=== PATIENT | male | born 1940 | race Caucasian/White ===

== ENCOUNTER → 2016-08-04 | Outpatient (CLI) | payer MEDICARE ==
[~2016-08-04] MED LIST: ALIS150T PO; ALLP300T PO; AMLO10TA82 PO; AMOX-208 PO; AMOX500C2 PO; ASP81CT PO; CARV12.53 PO; CEFU500T5 PO; CHOL100011 PO; FENO160T PO; HCT25T PO; INDO50CA PO; LISI20TA PO; LORA10TA2 PO; LVT.025T PO; NF-ALI300T PO; NFNEB10T PO; NIA500ERT PO; NIAC1CAP PO; OMEG-12 PO; OMG1KC PO; PNT40TEC PO; PRAS10TA6 PO; RNT150T PO; ROSU5TAB PO; TYLENOL
--- NOTE | 2016-08-04 12:48 | Diagnostic Imaging Report ---
EXAMINATION: PA and lateral views of the chest. INDICATION: Cough. COMPARISON: 04/07/2010. FINDINGS: The heart size is mildly enlarged. There is interstitial pulmonary edema. No airspace opacity or alveolar edema. No pleural effusion. No pneumothorax. There is a pacemaker with 2 leads seen. 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 IMPRESSION: Cardiomegaly with interstitial pulmonary edema. Dictated by: Dictated on workstation # [id number]
== END ==
LOC: RAD 12:29
PROVIDERS: ATTEND Nurse Practitioner Family
DX: I51.7 Cardiomegaly (principal); J81.1 Chronic pulmonary edema
CPT/HCPCS: 71020

== ENCOUNTER → 2016-11-07 | Outpatient (CLI) | payer MEDICARE ==
[~2016-11-07] MED LIST changes: +meTOprolol 5 MG/5 ML (LOPRESSOR) VIAL ONE
--- NOTE | 2016-11-08 08:21 | ECHOCARDIOGRAPHY REPORT ---
PROCEDURE PHYSICIAN: JEOVANY ROBLERO DATE OF PROCEDURE: 11/07/2016 TWO DIMENSIONAL ECHOCARDIOGRAM REPORT PRIMARY PHYSICIAN: OTHER PHYSICIAN: REFERRING PHYSICIAN: Dr. Okeefe ORDERING PHYSICIAN: INDICATION FOR THE PROCEDURE: Coronary artery disease. MEASUREMENTS DERIVED VALUES LV DIAMETER (LAX) NORMALS NORMALS Diastolic 4 (3.6-5.2) Eject. Fract. 60% (60%+/-6%) Systolic (2.3-3.9) Diastolic Vol. % Shortening (0.22-0.42) Systolic Vol. Aortic Root IVS THICKNESS Diastolic 1.2 (0.6-1.1) LVPW THICKNESS Diastolic 1.2 (0.6-1.1) LA DIAMETER Systolic 5 (2.1-3.7) FINDINGS: 1. Technical quality is good. 2. The left ventricle is normal in size with mild to moderate left ventricular hypertrophy noted diffusely. Systolic function appeared to be normal. Estimated ejection fraction 60%. 3. The left atrium is dilated. No clot or thrombus were seen within the left atrium. 4. The right atrium and right ventricle are normal in size. No clot or thrombus were seen within the right side. 5. Mitral valve is normal in morphology with mild mitral regurgitation noted by color Doppler flow. No mitral valve prolapse. No mitral valve stenosis. 6. Aortic valve is trileaflet with normal opening and closing pattern. No significant aortic valve stenosis was noted. Mild aortic regurgitation noted by color Doppler flow. 7. Tricuspid valve is normal in morphology with mild tricuspid regurgitation noted by color Doppler flow. Doppler across tricuspid valve estimated pulmonary artery pressure of 31+ right atrial pressure. 8. Pulmonic valve is functioning normally. 9. No pericardial effusion. IN CONCLUSION: 1. Mild to moderate left ventricular hypertrophy noted diffusely with normal systolic function. Estimated ejection fraction 60%. 2. Left atrial dilatation. 3. Mild aortic regurgitation. Mild mitral and tricuspid regurgitation. 4. Pulmonary hypertension with estimated pulmonary artery pressure of 40 mmHg. Job ID: [id number] Dictated Date: 11/07/2016 18:26:13 Major Gifts Director Date: 11/08/2016 08:18:13 / juno
--- NOTE | 2016-11-08 08:27 | STRESS TEST ---
PROCEDURE PHYSICIAN: JEOVANY ROBLERO DATE OF PROCEDURE: 11/07/2016 EXERCISE STRESS ECHOCARDIOGRAM REPORT: REFERRING PHYSICIAN: Dr. Okeefe. INDICATION: Coronary artery disease. BASELINE HEART RATE: 90 BASELINE BLOOD PRESSURE: 140/87 BASELINE EKG: Sinus rhythm with no ischemic changes. IN SUMMARY: The patient started exercising with a baseline heart rate, blood pressure, EKG mentioned above. At minute 1 and 50 seconds, started having frequent PVCs. Then had transient episode of left bundle branch block, probably secondary to paced rhythm. He continued to exercise for a total of 6 minutes on standard Mark protocol, achieving maximum heart rate of 155, which is over 100% of maximum expected heart rate. With peak exercise level, EKG was showing nondiagnostic changes. He had frequent PVCs and ventricular couplets. At peak stress level, blood pressure was 194/116. No acute ischemic changes. During recovery, he continued to have frequent PVCs and ventricular couplets. Then he had transient episode of ventricular paced rhythm with left bundle branch block. The patient was not having any chest pain. The resting and stress images were reviewed and compared in the short axis, horizontal long axis, and vertical long axis views. Review of the images showed normal left ventricular size with mild hypokinesia at the anteroapical segment and anterior lateral wall, probably due to underlying paced rhythm at peak stress level that was transient. Frequent PVCs also affected the quality of the images. No significant ischemic changes. IN CONCLUSION: 1. Good exercise tolerance a total of 6 minutes on standard Mark protocol. Total 7 METs, achieving over 100% of maximum expected heart rate. 2. Exercise-induced frequent PVCs, ventricular couplets and ventricular trigeminy. 3. Transient episode of left bundle branch block due to intermittent pacing rhythm. 4. Normal echocardiographic images at rest, mild hypokinesia at the apex at peak stress level, probably due to underlying paced rhythm and the frequent PVCs. 5. Overall, this is a nondiagnostic test. The patient was asymptomatic. He will be treated medically and monitor. Job ID: [id number] Dictated Date: 11/07/2016 18:32:15 Heating And Ventilating Drafter Date: 11/08/2016 08:23:15 / juno
== END ==
LOC: CARD 08:18
PROVIDERS: ATTEND Physician Assistant
DX: I25.10 Atherosclerotic heart disease of native coronary artery without angina pectoris (principal); I65.23 Occlusion and stenosis of bilateral carotid arteries; I10 Essential (primary) hypertension; E78.2 Mixed hyperlipidemia
CPT/HCPCS: 93306

== ENCOUNTER 2017-01-11 20:45 | Outpatient (CLI) | payer MEDICARE ==
[~2017-01-11 20:45] MED LIST changes: -meTOprolol 5 MG/5 ML (LOPRESSOR) VIAL ONE
== END 2017-01-12 05:44 | disposition home or self-care (01) ==
LOC: SLEEP 20:45
PROVIDERS: ATTEND Internal Medicine Cardiovascular Disease
DX: G47.33 Obstructive sleep apnea (adult) (pediatric) (principal); I10 Essential (primary) hypertension
CPT/HCPCS: 95810

== ENCOUNTER 2017-01-27 12:16 | Outpatient (RCR) | payer MEDICARE | END 2017-04-27 | disposition home or self-care (01) | LOC: CARD 12:16 | PROVIDERS: ATTEND Internal Medicine Cardiovascular Disease | DX: I47.2 Ventricular tachycardia (principal) | CPT/HCPCS: 93225; 93226 ==

== ENCOUNTER 2017-02-17 21:05 | Outpatient (CLI) | payer MEDICARE | END 2017-02-18 05:49 | disposition home or self-care (01) | LOC: SLEEP 21:05 | PROVIDERS: ATTEND Nurse Practitioner Family | DX: G47.33 Obstructive sleep apnea (adult) (pediatric) (principal) | CPT/HCPCS: 95811 ==

== ENCOUNTER 2017-06-24 07:59 | Emergency (ER) | payer MEDICARE ==
[~2017-06-24] VITALS: Ht 167.6 cm; Wt 90.7 kg
--- OUTSIDE RECORDS SUMMARY | 2017-06-24 08:04 | XMS REPORT | Continuity of Care Document ---
Author Author [facility] Organization [facility] Address Unknown Phone Unavailable Allergies Active Description Code Type Severity Reaction Onset Reported/Identified Relationship to Patient Clinical Status Yes No Known Drug Allergies [id number] Drug Allergy Unknown N/ A 12/13/2007 Medications Problems Date Dx Coded Attending Type Code Diagnosis Diagnosed By 01/11/2010 Ot 244.9 01/11/2010 Ot 272.4 01/11/2010 Ot 274.9 01/11/2010 Ot 401.9 01/11/2010 Ot 414.01 01/11/2010 Ot 414.02 01/11/2010 Ot 427.89 01/11/2010 Ot 530.81 01/11/2010 Ot 553.1 01/11/2010 Ot 790.5 04/08/2010 Ot 272.4 04/08/2010 Ot 401.9 04/08/2010 Ot 414.00 04/08/2010 Ot 427.81 04/08/2010 Ot 427.89 04/08/2010 Ot V45.81 04/08/2010 Ot V45.82 04/08/2010 Ot V58.66 04/08/2010 Ot V58.69 04/29/2010 Ot 427.89 10/01/2010 Ot 706.2 02/08/2011 Ot 272.4 02/08/2011 Ot 396.3 02/08/2011 Ot 397.0 02/08/2011 Ot 401.9 02/08/2011 Ot 414.01 02/08/2011 Ot 414.02 02/08/2011 Ot 414.2 02/08/2011 Ot 427.81 02/08/2011 Ot 427.89 02/08/2011 Ot 794.30 02/08/2011 Ot V45.01 02/08/2011 Ot V45.81 02/08/2011 Ot V45.82 02/08/2011 Ot V58.66 02/08/2011 Ot V58.69 12/25/2014 Ot 429.3 12/25/2014 Ot 780.60 12/25/2014 Ot 786.2 12/25/2014 Ot V45.81 12/25/2014 Ot 396.3 12/25/2014 Ot 397.0 12/25/2014 Ot 401.9 12/25/2014 Ot 427.89 12/25/2014 Ot 401.9 12/25/2014 Ot 414.01 12/25/2014 Ot 427.89 12/25/2014 Ot 791.9 12/25/2014 Ot V72.63 12/25/2014 Ot V72.81 12/25/2014 Ot 427.89 12/25/2014 Ot 272.4 12/25/2014 Ot 401.0 12/25/2014 Ot 414.01 12/25/2014 Ot V81.5 12/25/2014 Ot 706.2 12/25/2014 Ot 396.8 12/25/2014 Ot 397.0 12/25/2014 Ot 401.9 12/25/2014 Ot 414.00 12/25/2014 Ot 401.9 12/25/2014 Ot 414.00 12/25/2014 Ot 272.4 12/25/2014 Ot 401.9 12/25/2014 Ot 413.9 12/25/2014 Ot 414.00 12/25/2014 Ot 428.0 12/25/2014 Ot 794.39 12/25/2014 Ot V45.81 12/25/2014 Ot V72.63 12/25/2014 Ot V72.81 12/25/2014 Ot 396.3 12/25/2014 Ot 397.0 12/25/2014 Ot 414.00 12/25/2014 Ot 416.8 12/25/2014 Ot 782.3 12/25/2014 Ot 786.09 12/25/2014 OSBALDO FINCH, JEOVANY Valle Ot 272.4 12/25/2014 OSBALDO FINCH, JEOVANY Valle Ot 396.3 12/25/2014 OSBALDO FINCH, JEOVANY Valle Ot 397.0 12/25/2014 OSBALDO FINCH, JEOVANY Valle Ot 401.9 12/25/2014 OSBALDO FINCH, JEOVANY Valle Ot 414.00 12/25/2014 OSBALDO FINCH, JEOVANY Valle Ot 416.8 02/20/2015 OSBALDO FINCH, JEOVANY Valle Ot 272.4 02/20/2015 OSBALDO FINCH, JEOVANY Valle Ot 401.9 02/20/2015 OSBALDO FINCH, JEOVANY Valle Ot 414.00 02/20/2015 OSBALDO FINCH, JEOVANY Valle Ot 428.0 02/20/2015 OSBLADO FINCH, JEOVANY Valle Ot 433.10 02/26/2015 OSBALDO FINCH, JEOVANY Valle Ot 272.4 02/26/2015 OSBALDO FINCH, JEOVANY Valle Ot 401.9 02/26/2015 OSBALDO FINCH, JEOVANY Valle Ot 414.00 02/26/2015 OSBALDO FINCH, JEOVANY Valle Ot 428.0 02/26/2015 OSBALDO FINCH, JEOVANY Valle Ot 433.10 08/05/2016 LOBITO SANDOVAL EMPLOYEE COMMUNICATIONS SPECIALIST Ot I51.7 CARDIOMEGALY 08/05/2016 LOBITO SANDOVAL EMPLOYEE COMMUNICATIONS SPECIALIST Ot J81.1 CHRONIC PULMONARY EDEMA 08/26/2016 LOBITO SANDOVAL EMPLOYEE COMMUNICATIONS SPECIALIST Ot I51.7 CARDIOMEGALY 08/26/2016 LOBITO SANDOVAL EMPLOYEE COMMUNICATIONS SPECIALIST Ot J81.1 CHRONIC PULMONARY EDEMA 09/01/2016 LOBITO SANDOVAL EMPLOYEE COMMUNICATIONS SPECIALIST Ot I51.7 CARDIOMEGALY 09/01/2016 LOBITO SANDOVAL EMPLOYEE COMMUNICATIONS SPECIALIST Ot J81.1 CHRONIC PULMONARY EDEMA 11/07/2016 WALT CARDENAS Ot I25.10 ATHSCL HEART DISEASE OF [place] CORONARY 11/07/2016 WALT CARDENAS Ot I25.10 ATHSCL HEART DISEASE OF [place] CORONARY 11/07/2016 WALT CARDENAS Ot E78.2 MIXED HYPERLIPIDEMIA 11/07/2016 WALT CARDENAS Ot I10 ESSENTIAL (PRIMARY) HYPERTENSION 11/07/2016 WALT CARDENAS Ot I25.10 ATHSCL HEART DISEASE OF [place] CORONARY 11/07/2016 WALT CARDENAS Ot I65.23 OCCLUSION AND STENOSIS OF BILATERAL GR[place] 11/09/2016 WALT CARDENAS Ot E78.2 MIXED HYPERLIPIDEMIA 11/09/2016 WALT CARDENAS Ot I10 ESSENTIAL (PRIMARY) HYPERTENSION 11/09/2016 WALT CARDENAS Ot I25.10 ATHSCL HEART DISEASE OF [place] CORONARY 11/09/2016 WALT CARDENAS Ot I65.23 OCCLUSION AND STENOSIS OF BILATERAL GRIMALDO 11/13/2016 JACKELIN-WILVER PA, WALT K Ot E78.2 MIXED HYPERLIPIDEMIA 11/13/2016 JACKELIN-WILVER PA, WALT K Ot I10 ESSENTIAL (PRIMARY) HYPERTENSION 11/13/2016 GÉNESIS PA, WALT K Ot I25.10 ATHSCL HEART DISEASE OF [place] CORONARY 11/13/2016 JACKELIN-WILVER PA, WALT K Ot I65.23 OCCLUSION AND STENOSIS OF BILATERAL GRIMALDO 12/19/2016 JACKELIN-WILVER PA, WALT K Ot E78.2 MIXED HYPERLIPIDEMIA 12/19/2016 JACKELIN-WILVER PA, WALT K Ot I10 ESSENTIAL (PRIMARY) HYPERTENSION 12/19/2016 JACKELIN-WILVER PA, WALT K Ot I25.10 ATHSCL HEART DISEASE OF [place] CORONARY 12/19/2016 JACKELIN-WILVER PA, WALT K Ot I65.23 OCCLUSION AND STENOSIS OF BILATERAL GR[place]AL[place] 12/27/2016 JACEKLIN-WILVER PA, WALT K Ot E78.2 MIXED HYPERLIPIDEMIA 12/27/2016 GÉNESIS PA, WALT K Ot I10 ESSENTIAL (PRIMARY) HYPERTENSION 12/27/2016 GÉNESIS PA, WALT K Ot I25.10 ATHSCL HEART DISEASE OF [place] CORONARY 12/27/2016 JACKELIN-WILVER PA, WALT K Ot I65.23 OCCLUSION AND STENOSIS OF BILATERAL GRIMALDO 12/29/2016 JACKELIN-WILVER PA, WALT K Ot E78.2 MIXED HYPERLIPIDEMIA 12/29/2016 JACKELIN-WILVER PA, WALT K Ot I10 ESSENTIAL (PRIMARY) HYPERTENSION 12/29/2016 JACKELIN-WILVER PA, WALT K Ot I25.10 ATHSCL HEART DISEASE OF [place] CORONARY 12/29/2016 JACKELIN-WILVER PA, WALT K Ot I65.23 OCCLUSION AND STENOSIS OF BILATERAL GR[place] 01/12/2017 OSBALDO FINCH, JEOVANY Valle Ot G47.33 OBSTRUCTIVE SLEEP APNEA (ADULT) (PEDIATR 01/12/2017 OSBALDO FINCH, JEOVANY Valle Ot I10 ESSENTIAL (PRIMARY) HYPERTENSION 02/01/2017 OSBALDO FINCH, JEOVANY Valle Ot 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 02/01/2017 OSBALDO FINCH, JEOVANY Valle Ot 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 02/01/2017 JEOVANY ROBLERO MD Ot 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 02/01/2017 JEOVANY ROBLERO MD Ot 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 02/01/2017 JEOVANY ROBLERO MD Ot 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 02/01/2017 JEOVANY ROBLERO MD Ot 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 02/17/2017 DAISY RODAS Ot G47.33 OBSTRUCTIVE SLEEP APNEA (ADULT) ( PEDIATR 02/18/2017 DAISY RODAS Ot G47.33 OBSTRUCTIVE SLEEP APNEA (ADULT) ( PEDIATR 02/20/2017 WALT CARDENAS Ot E78.2 MIXED HYPERLIPIDEMIA 02/20/2017 WALT CARDENAS Ot I10 ESSENTIAL (PRIMARY) HYPERTENSION 02/20/2017 WALT CARDENAS Ot I25.10 ATHSCL HEART DISEASE OF [place] CORONARY 02/20/2017 WALT CARDENAS Ot I65.23 OCCLUSION AND STENOSIS OF BILATERAL GR[place] 02/20/2017 JEOVANY ROBLERO MD Ot 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 02/24/2017 JEOVANY ROBLERO MD Ot 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 04/27/2017 JEOVANY ROBLERO MD, Ot 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 Procedures Results Encounters ACCT No. Visit Date/Time Discharge Status Pt. Type Provider Facility Loc./Unit Complaint [id number] 04/28/2017 13:15:00 2016 23:59:59 CLS Preadmit JEOVANY ROBLERO MD [facility] CARD DAMION COMPLEX TACHYCARDIA I [id number] 01/27/2017 12:16:00 2016 00:01:00 DIS Outpatient JEOVANY ROBLERO MD [facility] CARD DAMION COMPLEX TACHYCARDIA I [id number] 02/17/2017 21:05:00 2016 05:49:00 DIS Outpatient DAISY RODAS [facility] SLEEP PAT G47.33 [id number] 01/11/2017 20:45:00 2016 05:44:00 DIS Outpatient JEOVANY ROBLERO MD [facility] SLEEP OBSTRUCTIVE SLEEP APNEA [id number] 11/07/2016 08:18:00 2016 23:59:59 CLS Outpatient WALT CARDENAS [facility] CARD CAD,HTN,HLP,CAROTID STENOSIS [id number] 08/04/2016 12:29:00 2016 23:59:59 CLS Outpatient LOBITO SANDOVAL KEN [facility] RAD COUGH [id number] 01/19/2015 08:40:00 2014 23:59:59 CLS Outpatient JEOVANY ROBLERO MD [facility] CARD [id number] 12/11/2013 07:33:00 2013 23:59:59 CLS Outpatient JEOVANY ROBLERO MD [facility] CARD [id number] 07/15/2011 12:39:00 Document Registration [id number] 02/08/2011 05:41:00 Document Registration [id number] 02/07/2011 09:49:00 Document Registration [id number] 01/24/2011 06:42:00 Document Registration [id number] 01/19/2011 12:25:00 Document Registration [id number] 10/02/2010 00:00:00 Document Registration [id number] 07/04/2010 09:14:00 Document Registration [id number] 05/31/2010 08:07:00 Document Registration [id number] 04/30/2010 09:00:00 Document Registration [id number] 04/07/2010 05:39:00 Document Registration [id number] 04/06/2010 07:54:00 Document Registration [id number] 03/30/2010 11:08:00 Document Registration [id number] 02/04/2010 09:57:00 Document Registration [id number] 01/29/2010 08:56:00 Document Registration [id number] 01/07/2010 01:52:00 Document Registration
--- NOTE | 2017-06-24 08:21 | ED Cough/URI ---
General Chief Complaint: Cough/Cold/Flu Symptoms Stated Complaint: POSS SINUS INFECTION, WATERING EYES, COUGH Nursing Triage Note: PT CO OF COUGH WATERY EYES, EYES MATTERED SHUT, RUNNY NOSE LOW GRADE FEVER COUPLE DAYS AGO Source: patient, spouse Exam Limitations: no limitations History of Present Illness Time seen by provider: 08:07 Initial Comments Patient presents to ER by private conveyance with his and a chief complaint that for 4 days now he's had a cough 2 days ago he had some chills and had a temperature of 100 Fahrenheit. His cough has been productive of phlegm. He is also had watering of his eyes and today he woke up with a lot of mattering in both eyes that he had to wash his face where he did feel his eyelids open. He does not smoke or use any tobacco products. No drinking or recreational drug use. He is not on any immunocompromising medications. He's had a sore throat as well as nasal congestion. His use Advil cough and cold medicine [id number] with modest relief. He has not been on antibiotics the last 4 weeks. He has no shortness of breath or chest pain. Patient received his flu shot this season. Allergies and Home Medications Allergies Coded Allergies: No Known Drug Allergies (Verified , 12/13/07) Home Medications Aliskiren Hemifumarate 150 Mg Tablet, 150 MG PO DAILY, (Reported) Allopurinol 300 Mg Tab, 300 MG PO HS, (Reported) Amlodipine Besylate 10 Mg Tablet, 10 MG PO DAILY, (Reported) Aspirin 81 Mg Chew, 81 MG PO DAILY, (Reported) Benzonatate 100 Mg Capsule, 100 MG PO Q6H PRN for COUGH, #30 Ref 0 Prescribed by: ABE VAUGHN on 06/24/17828 Cholecalciferol 1,000 Unit Capsule, 1,000 UNIT PO DAILY, (Reported) Erythromycin Base 1 Gm Oint...g., 0 OP QID for 5 Days, #1 Ref 0 1/2 inch Prescribed by: ABE VAUGHN on 06/24/17828 Guaifenesin/Codeine Phosphate 120 Ml Liquid, 5 ML PO Q6H PRN for COUGH, #120 Ref 0 Prescribed by: ABE VAUGHN on 06/24/17828 Hydrochlorothiazide 25 Mg Tab, 25 MG PO DAILY, (Reported) Indomethacin 50 Mg Capsule, 150 MG PO daily prn PRN, (Reported) Levothyroxine Sodium 25 Mcg Tablet, 50 MCG PO DAILY, (Reported) Lisinopril 20 Mg Tablet, 20 MG PO HS, (Reported) Loratadine 10 Mg Tablet, 10 MG PO DAILY PRN, (Reported) Nebivolol Hcl 10 Mg Tablet, 10 MG PO HS, (Reported) Niacin/Inositol Niacinate 1 Each Capsule, 500 MG PO BID, (Reported) [place]-3/Dha/Epa/Fish Oil 1 Each Capsule.dr, 1,000 MG PO BID, (Reported) Pantoprazole Sodium 40 Mg Tablet.dr, 40 MG PO daily prn, #30 (Reported) Prasugrel Hydrochloride 10 Mg Tablet, 10 MG PO DAILY, (Reported) Ranitidine Hcl 150 Mg Tablet, 150 MG PO DAILY, #30 (Reported) Rosuvastatin Calcium 5 Mg Tablet, 5 MG PO HS, (Reported) Constitutional: chills, No diaphoresis, No fever, malaise EENTM: tearing (mattering bilaterally), nose congestion, No hearing loss, No ear pain, No vision loss, No nose pain Respiratory: cough, phlegm, No short of breath Cardiovascular: No chest pain, No palpitations Gastrointestinal: No abdominal pain, No constipation, No diarrhea, No nausea Genitourinary: No discharge, No dysuria Musculoskeletal: No joint pain, No joint swelling Skin: No pruritus, No rash Psychiatric/Neurological: Headache, Denies Numbness, Denies Paresthesia Past Mekpits-Vejczj-Ndukqq Hx Patient Social History Alcohol Use: Denies Use Recreational Drug Use: No Smoking Status: Never a Smoker Recent Foreign Travel: No Contact w/Someone Who Travel: No Recent Infectious Disease Expo: No Recent Hopitalizations: Yes (SEVERAL YRS AGO FOR ALLERGIC REACTION TO MED) Physical Abuse: No Sexual Abuse: No Surgeries History of Surgeries: Yes (LEFT HIP REPLACEMENT) Cardiovascular History of Cardiac Disorders: Yes Neurological History of Neurological Disord: No Gastrointestinal History of Gastrointestinal Di: Yes (HAS HAD BLEEDING ULCERS) Musculoskeletal History of Musculoskeletal Dis: Yes Endocrine History of Endocrine Disorders: No Psychosocial History of Psychiatric Problem: No Suicide Risk Score: 0 Blood Transfusions History of Blood Disorders: No Physical Exam Vital Signs Vital Sign - Last 12Hours 06/24/17 08:00 Temp 98.2 Pulse 89 Resp 18 B/P (MAP) 187/107 Pulse Ox 95 Capillary Refill : Less Than 3 Seconds General Appearance: WD/WN, mild distress Eyes: Bilateral Eye PERRL, Bilateral Eye EOMI, Bilateral Eye Other (bilateral conjunctival injection and tearing with scant amount of mattering at the inner canthus.) HEENT: PERRL/EOMI, TM abnormal (R) (dull with mucoid effusion), TM abnormal (L ) (dull with mucoid effusion), pharyngeal erythema, other (oral mucous membranes are modestly dry) Neck: non-tender, supple, normal inspection Respiratory: chest non-tender, lungs clear, normal breath sounds, decreased breath sounds Cardiovascular: normal peripheral pulses, regular rate, rhythm Gastrointestinal: normal bowel sounds, non tender, soft Neurologic/Psychiatric: alert, oriented x 3 Skin: normal color, warm/dry Progress/Results/Core Measures Suspected Sepsis Recent Fever Within 48 Hours: No Infection Criteria Present: None New/Unexplained Altered Menta: No Sepsis Screen: No Definite Risk Sepsis Diagnosis: SIRS Temperature:98.2 Pulse: 89 Respiratory Rate: 18 Laboratory Tests 06/24/17 08:20: White Blood Count 10.4 Blood Pressure 187 /107 Mean: 133 Laboratory Tests 06/24/17 08:20: Creatinine 0.79, Platelet Count 128L, Total Bilirubin 1.0 Results/Orders Lab Results Laboratory Tests Test 06/24/17 08:20 Range/Units White Blood Count 10.4 4.3-11.0 10^3/uL Red Blood Count 5.04 4.35-5.85 10^6/uL Hemoglobin 15.0 13.3-17.7 G/DL Hematocrit 44 40-54 % Mean Corpuscular Volume 87 80-99 FL Mean Corpuscular Hemoglobin 30 25-34 PG Mean Corpuscular Hemoglobin Concent 34 32-36 G/DL Red Cell Distribution Width 13.9 10.0-14.5 % Platelet Count 128 L 130-400 10^3/uL Mean Platelet Volume 9.9 7.4-10.4 FL Neutrophils (%) (Auto) 67 42-75 % Lymphocytes (%) (Auto) 20 12-44 % Monocytes (%) (Auto) 11 0-12 % Eosinophils (%) (Auto) 1 0-10 % Basophils (%) (Auto) 0 0-10 % Neutrophils # (Auto) 6.9 1.8-7.8 X 10^3 Lymphocytes # (Auto) 2.1 1.0-4.0 X 10^3 Monocytes # (Auto) 1.1 H 0.0-1.0 X 10^3 Eosinophils # (Auto) 0.1 0.0-0.3 10^3/uL Basophils # (Auto) 0.0 0.0-0.1 10^3/uL Sodium Level 139 135-145 MMOL/L Potassium Level 3.8 3.6-5.0 MMOL/L Chloride Level 106 98-107 MMOL/L Carbon Dioxide Level 21 21-32 MMOL/L Anion Gap 12 5-14 MMOL/L Blood Urea Nitrogen 19 H 7-18 MG/DL Creatinine 0.79 0.60-1.30 MG/DL Estimat Glomerular Filtration Rate > 60 BUN/Creatinine Ratio 24 Glucose Level 122 H 70-105 MG/DL Calcium Level 9.4 8.5-10.1 MG/DL Total Bilirubin 1.0 0.1-1.0 MG/DL Aspartate Amino Transf (AST/SGOT) 17 5-34 U/L Alanine Aminotransferase (ALT/SGPT) 13 0-55 U/L Alkaline Phosphatase 130 40-136 U/L Total Protein 7.5 6.4-8.2 GM/DL Albumin 4.0 3.2-4.5 GM/DL Group A Streptococcus Screen NEGATIVE NEGATIVE My Orders Orders - ABE VAUGHN Cbc With Automated Diff (06/24/17 08:13) Comprehensive Metabolic Panel (06/24/17 08:13) Rapid Strep A Screen (06/24/17 08:13) Chest Pa/Lat (2 View) (06/24/17 08:13) Vital Signs/I&O Vital Sign - Last 12Hours 06/24/17 08:00 Temp 98.2 Pulse 89 Resp 18 B/P (MAP) 187/107 Pulse Ox 95 Capillary Refill : Less Than 3 Seconds Blood Pressure Mean: 133 Progress Note : Time: 08:19 Progress Note Most consistent with viral URI symptoms possible viral versus bacterial conjunctivitis. We will prescribe ophthalmic antibiotics and get a CBC, CMP and chest x-ray to workup his productive cough. Bronchitis versus pneumonia. Probably not influenza as there is no fever and the majority of his symptoms appear more to be upper respiratory in nature. Diagnostic Imaging Diagonstic Imaging: Xray Plain Films/CT/US/NM/MRI: chest Comments Sternotomy wires and pacemaker noted. There are some minor atelectasis in the fissure between the right middle and right lower lobe. Bronchial congestion. [facility] [employer] [place], [place] NAME: IRMA GONCALVES [facility] REC#: [id number] PT STATUS: REG ER : 1940 PHYSICIAN: ABE VAUGHN MD ADMIT DATE: 06/24/17/ER Draft Date of Exam:06/24/17 CHEST PA/LAT (2 VIEW) INDICATION: Cough and congestion. COMPARISON: 08/04/2016. FINDINGS: Two views of the chest are obtained. Heart size is enlarged but unchanged. There is mild central vascular congestion, similar to the prior study. Pacer device and postoperative change of the mediastinum are stable. Interstitial changes seen on the prior study have improved. No focal pneumonia is suspected. There are mild degenerative changes in the spine. IMPRESSION: Persistent cardiomegaly with mild central venous congestion. Interstitial changes, however, have improved. No new abnormality is seen. Dictated on workstation # [id number] Dict: 06/24/17 0831 Trans: 06/24/17 0859 [facility] [id number] Interpreted by: THERESA CAR DO Electronically signed by: Reviewed: Reviewed by Me Departure Impression Impression: Primary Impression: Conjunctivitis Qualified Codes: H10.33 - Unspecified acute conjunctivitis, bilateral Additional Impressions: Otitis media, serous Qualified Codes: H65.03 - Acute serous otitis media, bilateral URI (upper respiratory infection) Qualified Codes: J06.9 - Acute upper respiratory infection, unspecified; B97.89 - Other viral agents as the cause of diseases classified elsewhere Disposition: 01 HOME, SELF-CARE Condition: Stable Departure-Patient Inst. Decision time for Depature: 09:07 Referrals: BILLY BRENNER MD (PCP/Family) Primary Care Physician Patient Instructions: Conjunctivitis (Pinkeye) (DC), Viral Upper Respiratory Infection, Adult (DC) Add. Discharge Instructions: Use good hand hygiene with soap and water. Apply a warm compress over each eye as needed every 2-4 hours. You may use saline eyedrops in addition to the antibacterial drops but do not use them at the same time. Obtain a bottle of Flonase, fluticasone or Nasacort and apply 1 spray to each nostril daily for the next 2 weeks to help relieve the pressure in your middle ears. Vapor rubs, humidifiers and reduce in the heat in the house will help with your breathing and cough. He had a sore throat you may gargle salt water for 90 seconds every 4 -5 hours or as needed. Tylenol 1000 mg every 8 hours is reasonable for body aches, misery or chills. All discharge instructions reviewed with patient and/or family. Voiced understanding. Scripts Benzonatate (Tessalon Perle) 100 Mg Capsule 100 MG PO Q6H Y for COUGH, #30 CAP 0 Refills Prov: ABE VAUGHN 06/24/17 Guaifenesin/Codeine Phosphate (Codeine-Guaifen 10-100 mg/5 ml) 120 Ml Liquid 5 ML PO Q6H Y for COUGH, #120 ML 0 Refills Prov: ABE VAUGHN 06/24/17 Erythromycin Base (Erythromycin Opthalmic Ointment) 1 Gm Oint...g. 0 OP QID for 5 Days, #1 TUBE 0 Refills 1/2 inch Prov: ABE VAUGHN 06/24/17 Copy Copies To 1: BILLY BRENNER MD, TITUS J Jun 24, 2017 08:21
[2017-06-24 08:26] LABS: BASOPHILS % (AUTO) 0 % (0-10); EOSINOPHILS # (AUTO) 0.1 10^3/uL (0.0-0.3); EOSINOPHILS % (AUTO) 1 % (0-10); LYMPHOCYTES # (AUTO) 2.1 X 10^3 (1.0-4.0); LYMPHOCYTES % (AUTO) 20 % (12-44); MEAN CORPUSCULAR HEMOGLOBIN 30 PG (25-34); MEAN CORPUSCULAR HGB CONC 34 G/DL (32-36); MEAN CORPUSCULAR VOLUME 87 FL (80-99); MEAN PLATELET VOLUME 9.9 FL (7.4-10.4); MONOCYTES # (AUTO) 1.1 X 10^3 (0.0-1.0); MONOCYTES % (AUTO) 11 % (0-12); NEUTROPHILS # (AUTO) 6.9 X 10^3 (1.8-7.8); NEUTROPHILS % (AUTO) 67 % (42-75); PLATELET COUNT 128 10^3/uL (130-400); RED BLOOD COUNT 5.04 10^6/uL (4.35-5.85); RED CELL DISTRIBUTION WIDTH 13.9 % (10.0-14.5); WHITE BLOOD COUNT 10.4 10^3/uL (4.3-11.0)
[2017-06-24] MEDS ORDERED: GUAI120L56 PO (08:29)
[2017-06-24] MEDS ORDERED: ERYT1OIN6 OP (08:29)
[2017-06-24] MEDS ORDERED: BENZ-13 PO (08:29)
--- NOTE | 2017-06-24 09:00 | Diagnostic Imaging Report ---
INDICATION: Cough and congestion. COMPARISON: 08/04/2016. FINDINGS: Two views of the chest are obtained. Heart size is enlarged but unchanged. There is mild central vascular congestion, similar to the prior study. Pacer device and postoperative change of the mediastinum are stable. Interstitial changes seen on the prior study have improved. No focal pneumonia is suspected. There are mild degenerative changes in the spine. IMPRESSION: Persistent cardiomegaly with mild central venous congestion. Interstitial changes, however, have improved. No new abnormality is seen. Dictated by: Dictated on workstation # [id number]
[2017-06-24 09:02] LABS: ALANINE AMINOTRANSFERASE 13 U/L (0-55); ANION GAP 12 MMOL/L (5-14); ASPARTATE AMINO TRANSFERASE 17 U/L (5-34); BLOOD UREA NITROGEN 19 MG/DL (7-18); BUN/CREATININE RATIO 24; CALCIUM 9.4 MG/DL (8.5-10.1); CARBON DIOXIDE 21 MMOL/L (21-32); CHLORIDE 106 MMOL/L (98-107); CREATININE SERUM 0.79 MG/DL (0.60-1.30); GFR ESTIMATED > 60; GLUCOSE 122 MG/DL (70-105); POTASSIUM 3.8 MMOL/L (3.6-5.0); SODIUM 139 MMOL/L (135-145); TOTAL PROTEIN 7.5 GM/DL (6.4-8.2)
[2017-06-24 09:16] VITALS: BP 187/107
== END 2017-06-24 09:16 | disposition home or self-care (01) ==
LOC: EDUNIT# 07:59 → ER 08:01
DX: J06.9 Acute upper respiratory infection, unspecified (principal); H10.9 Unspecified conjunctivitis; H65.93 Unspecified nonsuppurative otitis media, bilateral; Z79.82 Long term (current) use of aspirin; Z96.642 Presence of left artificial hip joint; Z87.19 Personal history of other diseases of the digestive system
CPT/HCPCS: 36415; 71020; 80053; 85025; 87430; 99283

== ENCOUNTER → 2019-01-11 | Outpatient (CLI) | payer MEDICARE ==
[~2019-01-11] MED LIST changes: +BENZ100C18 PO; +ERYT1OIN6 OP; +GUAI120L56 PO
== END ==
LOC: RAD 09:39
PROVIDERS: ATTEND Internal Medicine Cardiovascular Disease
DX: I25.10 Atherosclerotic heart disease of native coronary artery without angina pectoris (principal); I65.29 Occlusion and stenosis of unspecified carotid artery; I10 Essential (primary) hypertension; E78.5 Hyperlipidemia, unspecified; Z95.0 Presence of cardiac pacemaker
CPT/HCPCS: 93306

== ENCOUNTER → 2019-01-14 | Outpatient (CLI) | payer MEDICARE ==
[~2019-01-14] VITALS: Ht 167.6 cm; Wt 95.3 kg
[~2019-01-14] MED LIST changes: +CATHETER FLUSH 10 ML SYR IV PRN
[2019-01-14 09:28] VITALS: BP 165/93
[2019-01-14 09:39] VITALS: BP 208/86
--- NOTE | 2019-01-15 09:18 | STRESS TEST ---
DATE OF SERVICE: 01/14/2019 EXERCISE MYOVIEW STRESS TEST REPORT REFERRING PHYSICIAN: . Baseline heart rate is 87. Baseline blood pressure 148/86. Baseline EKG sinus rhythm, no ischemic changes. In summary, the patient was injected with 10.57 mCi of technetium-99 Myoview and the resting images were obtained. Then, the patient started exercising with a baseline heart rate, blood pressure and EKG mentioned above. During exercise, the patient had frequent PVCs and ventricular couplet nondiagnostic EKG changes with exercise and was able to exercise for a total of 5 minutes and 15 seconds on standard Mark protocol. With peak exercise level, EKG was showing nondiagnostic changes. The patient was injected a stress dose of 32.7 mCi of technetium-99 Myoview. During recovery, heart rate and blood pressure returned to baseline. EKG returned to baseline. The resting and stress images were reviewed and compared in the short axis, horizontal long axis, and vertical long axis views. Review of the images showed diaphragmatic attenuation with decreased uptake involving the whole inferior wall, inferolateral wall and anterolateral wall with mild reversibility. SSS is 17, SDS 3, TID value 1.19. On the gated images, the left ventricle appeared to be normal size with inferior wall hypokinesia. Calculated ejection fraction 54%. CONCLUSION: 1. Fair exercise tolerance, a total of 5 minutes and 15 seconds on standard Mark protocol, total of 7.1 achieving 90% of maximum expected heart rate. 2. Severe hypertensive response to exercise with peak blood pressure 208/86, returned to baseline during recovery. 3. Exercise induced frequent PVCs and ventricular couplets. 4. Fixed defect involving the whole inferior wall and inferolateral wall with mild reversibility. 5. Transient ischemic dilatation with TID value of 1.1 6. Normal left ventricular size with hypokinesia in the inferior wall, calculated ejection fraction 54%. Job ID: [id number] DocumentID: [id number] Dictated Date: 01/15/2019 08:44:04 [employer] Date: 01/15/2019 09:18:13 Dictated By: JEOVANY ROLBERO MD
== END ==
LOC: CARD 07:44
PROVIDERS: ATTEND Internal Medicine Cardiovascular Disease
DX: I25.10 Atherosclerotic heart disease of native coronary artery without angina pectoris (principal); I10 Essential (primary) hypertension; E78.5 Hyperlipidemia, unspecified; Z95.0 Presence of cardiac pacemaker
CPT/HCPCS: 78452; 93017

== ENCOUNTER 2019-07-22 05:29 | Emergency (ER) | payer MEDICARE ==
[~2019-07-22] VITALS: Ht 167 cm; Wt 96.2 kg
[~2019-07-22 05:29] MED LIST changes: -CATHETER FLUSH 10 ML SYR IV PRN
[2019-07-22] MEDS ORDERED: FURO-125 PO (05:47)
[2019-07-22] MEDS ORDERED: METO-333 PO (05:47)
[2019-07-22] MEDS ORDERED: PRAV20TA3 PO (05:47)
[2019-07-22] MEDS ORDERED: NS IV 1000 ML 1,000 ML IV SCH (06:01)
[2019-07-22] MEDS ORDERED: fentaNYL INJECTION 100 MCG/2 ML AMP IVP ONE (06:15)
[2019-07-22] MEDS ORDERED: PANTOPRAZOLE 40 MG (PROTONIX) VIAL IV ONE (06:15)
--- NOTE | 2019-07-22 06:15 | ED Abdominal Pain ---
General Chief Complaint: Abdominal/GI Problems Stated Complaint: ABD PAIN Nursing Triage Note: right upper abdominal pain since 0200. Sepsis Screen: No Definite Risk Source of Information: Patient Exam Limitations: No Limitations History of Present Illness Date Seen by Provider: Jul 22, 2019 Time Seen by Provider: 05:54 Initial Comments Patient presents to ER with his spouse and chief complaint that since 2 AM, 4 ho urs prior to arrival he was awoken with a constant, aching pain in his right upper quadrant. He said he ate dinner around 8:00 and it was a bunch of peanuts. He had one episode of nausea but not presently. No fevers or chills. He's had a hip replacement but no abdominal surgeries. He has an umbilicus hernia. He has a history of intermittent GERD so he took some Zantac with no relief couple hours ago. He has a history of CABG and stents followed by Dr. Jurado and Dr. Okeefe. He has a history of high blood pressure and hypothyroidism. Allergies and Home Medications Allergies Coded Allergies: Sulfa (Sulfonamide Antibiotics) (Verified Allergy, Unknown, 07/22/19) Home Medications Allopurinol 300 Mg Tab, 300 MG PO HS, (Reported) Amlodipine Besylate 10 Mg Tablet, 10 MG PO DAILY, (Reported) Aspirin 81 Mg Chew, 81 MG PO DAILY, (Reported) Levothyroxine Sodium 25 Mcg Tablet, 50 MCG PO DAILY, (Reported) Lisinopril 20 Mg Tablet, 20 MG PO HS, (Reported) Metoprolol Tartrate 25 Mg Tablet, 25 MG PO BID, (Reported) Pantoprazole Sodium 40 Mg Tablet., 40 MG PO daily prn, (Reported) Pantoprazole Sodium 20 Mg Tablet., 20 MG PO BID Prescribed by: ABE VAUGHN on 07/22/19 0734 Ranitidine Hcl 150 Mg Tablet, 150 MG PO DAILY, (Reported) Patient Home Medication List Home Medication List Reviewed: Yes Review of Systems Review of Systems Constitutional: No chills, No fever, No malaise EENTM: No Blurred Vision, No Double Vision Respiratory: Denies Cough, Denies Shortness of Air Cardiovascular: Denies Chest Pain, Denies Lightheadedness Gastrointestinal: See HPI; Denies Abdomen Distended; Abdominal Pain; Denies Constipated, Denies Diarrhea; Nausea (not presently); Denies Poor Fluid Intake Genitourinary: Denies Burning, Denies Discharge, Denies Drainage Musculoskeletal: No back pain, No gout, No joint pain, No joint swelling Skin: No pruritus, No rash Psychiatric/Neurological: Denies Headache, Denies Numbness All Other Systems Reviewed Negative Unless Noted: Yes Past Gbacqfu-Ggjtmf-Ndopxo Hx Patient Social History Alcohol Use: Denies Use Recreational Drug Use: No Smoking Status: Never a Smoker 2nd Hand Smoke Exposure: No Recent Foreign Travel: No Contact w/Someone Who Travel: No Recent Infectious Disease Expo: No Recent Hopitalizations: No Physical Abuse: No Sexual Abuse: No Mistreated: No Fear: No Immunizations Up To Date Tetanus Booster (TDap): Unknown Past Medical History Surgeries: Yes (LEFT HIP REPLACEMENT) CABG, Coronary Stent, Pacemaker Respiratory: No Cardiac: Yes Coronary Artery Disease, High Cholesterol, Hypertension Neurological: No Genitourinary: No Gastrointestinal: Yes Gastroesophageal Reflux Musculoskeletal: Yes Arthritis Endocrine: Yes Hypothyroidsim HEENT: No Cancer: No Psychosocial: No Integumentary: No Blood Disorders: No Physical Exam Vital Signs Vital Signs - First Documented 07/22/19 05:37 Temp 36.5 Pulse 85 Resp 18 B/P (MAP) 155/93 (113) Pulse Ox 97 O2 Delivery Room Air Capillary Refill : Less Than 3 Seconds Height/Weight/BMI Height: 5'6.00" Weight: 210lbs. 0.0oz. 95.214291lo; 34.00 BMI Method:Stated General Appearance: WD/WN, mild distress HEENT: PERRL/EOMI, normal ENT inspection, pharynx normal Neck: non-tender, full range of motion Respiratory: lungs clear, normal breath sounds, no respiratory distress, no accessory muscle use Cardiovascular: normal peripheral pulses, regular rate, rhythm, no edema Peripheral Pulses: 2+ Radial Pulses (R), 2+ Radial Pulses (L) Gastrointestinal: normal bowel sounds, soft; No rebound; tenderness (right upper quadrant without Ramon sign), other (negative for Rovsing sign or McBurney's point tenderness. Negative for psoas sign or other mesenteric signs) Extremities: normal range of motion, non-tender, normal capillary refill Back: normal inspection, no CVA tenderness Neurologic/Psychiatric: alert, normal mood/affect, oriented x 3 Skin: normal color, warm/dry Progress/Results/Core Measures Results/Orders Lab Results Laboratory Tests Test 07/22/19 05:50 Range/Units White Blood Count 8.4 4.3-11.0 10^3/uL Red Blood Count 5.39 4.35-5.85 10^6/uL Hemoglobin 16.6 13.3-17.7 G/DL Hematocrit 49 40-54 % Mean Corpuscular Volume 91 80-99 FL Mean Corpuscular Hemoglobin 31 25-34 PG Mean Corpuscular Hemoglobin Concent 34 32-36 G/DL Red Cell Distribution Width 14.8 H 10.0-14.5 % Platelet Count 121 L 130-400 10^3/uL Mean Platelet Volume 9.9 7.4-10.4 FL Neutrophils (%) (Auto) 71 42-75 % Lymphocytes (%) (Auto) 20 12-44 % Monocytes (%) (Auto) 7 0-12 % Eosinophils (%) (Auto) 1 0-10 % Basophils (%) (Auto) 0 0-10 % Neutrophils # (Auto) 6.0 1.8-7.8 X 10^3 Lymphocytes # (Auto) 1.7 1.0-4.0 X 10^3 Monocytes # (Auto) 0.6 0.0-1.0 X 10^3 Eosinophils # (Auto) 0.1 0.0-0.3 10^3/uL Basophils # (Auto) 0.0 0.0-0.1 10^3/uL Urine Color YELLOW Urine Clarity CLEAR Urine pH 5.5 5-9 Urine Specific [place] >=1.030 1.016-1.022 Urine Protein NEGATIVE NEGATIVE Urine Glucose (UA) NEGATIVE NEGATIVE Urine Ketones NEGATIVE NEGATIVE Urine Nitrite NEGATIVE NEGATIVE Urine Bilirubin NEGATIVE NEGATIVE Urine Urobilinogen 0.2 < = 1.0 MG/DL Urine Leukocyte Esterase NEGATIVE NEGATIVE Urine RBC (Auto) NEGATIVE NEGATIVE Urine RBC NONE /HPF Urine WBC NONE /HPF Urine Squamous Epithelial Cells RARE /HPF Urine Crystals NONE /LPF Urine Bacteria TRACE /HPF Urine Casts NONE /LPF Urine Mucus NEGATIVE /LPF Urine Culture Indicated NO Sodium Level 140 135-145 MMOL/L Potassium Level 4.1 3.6-5.0 MMOL/L Chloride Level 106 98-107 MMOL/L Carbon Dioxide Level 23 21-32 MMOL/L Anion Gap 11 5-14 MMOL/L Blood Urea Nitrogen 22 H 7-18 MG/DL Creatinine 1.03 0.60-1.30 MG/DL Estimat Glomerular Filtration Rate > 60 BUN/Creatinine Ratio 21 Glucose Level 106 H 70-105 MG/DL Calcium Level 9.7 8.5-10.1 MG/DL Corrected Calcium 9.3 8.5-10.1 MG/DL Total Bilirubin 0.6 0.1-1.0 MG/DL Aspartate Amino Transf (AST/SGOT) 27 5-34 U/L Alanine Aminotransferase (ALT/SGPT) 38 0-55 U/L Alkaline Phosphatase 143 H 40-136 U/L Troponin I < 0.028 <0.028 NG/ML Total Protein 7.7 6.4-8.2 GM/DL Albumin 4.5 3.2-4.5 GM/DL Lipase 90 H 8-78 U/L My Orders Orders - ABE VAUGHN Ed Iv/Invasive Line Start (07/22/19 06:01) Ns Iv 1000 Ml (Sodium Chloride 0.9%) (07/22/19 06:01) Ct Abdomen/Pelvis W (07/22/19 06:01) Ua Culture If Indicated (07/22/19 06:01) Cbc With Automated Diff (07/22/19 06:01) Comprehensive Metabolic Panel (07/22/19 06:01) Lipase (07/22/19 06:01) Troponin I (07/22/19 06:01) Ekg Tracing (07/22/19 06:01) Continuous Ekg Monitoring (07/22/19 06:01) Chest 1 View, Ap/Pa Only (07/22/19 06:01) Ed Iv/Invasive Line Start (07/22/19 06:01) Pantoprazole Injection (Protonix Injecti (07/22/19 06:15) Fentanyl Injection (Sublimaze Injection (07/22/19 06:15) Iohexol Injection (Omnipaque 350 Mg/Ml 1 (07/22/19 07:15) Received Contrast (Hold Metformin- Contr (07/22/19 07:15) Ns (Ivpb) (Sodium Chloride 0.9% Ivpb Bag (07/22/19 07:15) Medications Given in ED Current Medications Medications Dose Ordered Sig/Charly Route Start Time Stop Time Status Last Admin Dose Admin Fentanyl Citrate 50 mcg ONCE ONCE IVP 07/22/19 06:15 07/22/19 06:16 DC 07/22/19 06:19 50 MCG Iohexol 100 ml ONCE ONCE IV 07/22/19 07:15 07/22/19 07:16 DC 07/22/19 07:06 100 ML Pantoprazole 40 mg ONCE ONCE IV 07/22/19 06:15 07/22/19 06:16 DC 07/22/19 06:18 40 MG Sodium Chloride 100 ml ONCE ONCE IV 07/22/19 07:15 07/22/19 07:16 DC 07/22/19 07:06 80 ML Vital Signs/I&O 07/22/19 05:37 Temp 36.5 Pulse 85 Resp 18 B/P (MAP) 155/93 (113) Pulse Ox 97 O2 Delivery Room Air Blood Pressure Mean: 113 Progress Progress Note #1: Time: 06:17 Progress Note Plan to obtain EKG and troponin to rule out atypical anginal syndrome. UA, labs to include lipase and CT of the abdomen pelvis with IV contrast. Liter of normal saline and 50 g of fentanyl for pain. Gallbladder, PUD, gastritis, pancreatitis, ductal disease, colitis/diverticulitis. Pantoprazole 40 mg IV. Echocardiogram from December [address] Jurado demonstrating EF of 50-55%. Normal looking bowels. No aortic root dilatation. Progress Note #2: Time: 07:48 Progress Note The patient is pain and nausea free he does have a marginal elevation in his pancreatic enzyme but is no evidence of elevated alkaline phosphatase, bilirubin or ductal dilatation on imaging. Suspect that he may have passed a gallstone. We have discussed elective surgery versus things should bring him back for emergent surgery. We have encouraged follow-up with a surgeon to discuss the risks, benefits and alternatives. We have also encouraged him to start pantoprazole. Patient is in agreement with this plan and all of his and his 's questions were answered. We discussed a biliary colic diet. Initial ECG Impression Date: Jul 22, 2019 Initial ECG Impression Time: 06:18 Initial ECG Rate: 67 Initial ECG Rhythm: Normal Sinus Initial ECG Intervals: MS (236) Initial ECG Impression: 1st Degree AV Block Initial ECG Comparisson: Unchanged (2010) Comment Sinus rhythm and first-degree AV block without clinically relevant ST elevation or depression. Diagnostic Imaging Diagonstic Imaging: CT (with IV contrast) Plain Films/CT/US/NM/MRI: abdomen, pelvis Comments NAME: IRMA GONCALVES [facility] REC#: [id number] PT STATUS: REG ER : 1940 PHYSICIAN: ABE VAUGHN MD ADMIT DATE: 07/22/19/ER Draft Date of Exam:07/22/19 CT ABDOMEN/PELVIS W PROCEDURE: CT abdomen and pelvis with contrast. TECHNIQUE: Multiple contiguous axial images were obtained through the abdomen and pelvis after administration of intravenous contrast. Auto Exposure Controls were utilized during the CT exam to meet ALARA standards for radiation dose reduction. INDICATION: Right upper quadrant pain for 5 hours. History of triple bypass. COMPARISON: 05/31/2010 FINDINGS: There is dependent atelectasis in the lung bases. The heart is large. There is no pericardial effusion. The liver demonstrates no focal lesions. The spleen appears normal. Multiple small calcified stones are seen in the gallbladder. The pancreas is unremarkable. The adrenal glands appear normal. There are simple appearing cysts in the kidneys bilaterally. The largest is on the inferior right kidney measuring up to 5.3 cm in size. The bowel loops are nondistended without obstruction. The appendix appears normal. The descending and sigmoid colon appear decompressed. There is no free fluid or free air seen. The aorta is normal in caliber. There is a fat-containing periumbilical hernia containing fluid. No bowel involvement is seen. No acute osseous abnormality is seen. There is a left hip arthroplasty. IMPRESSION: 1. Cholelithiasis. 2. Fat and fluid containing periumbilical hernia. No bowel involvement. 3. 5 cm right renal cyst with no hydronephrosis. 4. Cardiomegaly. Dictated on workstation # [id number] Dict: 07/22/19718 Trans: 07/22/19 07 [facility] [id number] Interpreted by: AMENA LR MD Electronically signed by: Reviewed: Reviewed by Me Diagonstic Imaging: Xray Plain Films/CT/US/NM/MRI: chest (1v) Comments NAME: IRMA GONCALVES [facility] REC#: [id number] PT STATUS: REG ER : 1940 PHYSICIAN: ABE VAUGHN MD ADMIT DATE: 07/22/19/ER Draft Date of Exam:07/22/19 CHEST 1 VIEW, AP/PA ONLY HISTORY: Right upper quadrant pain. TECHNIQUE: Frontal view of the chest COMPARISON: 06/24/2017 FINDINGS: Left-sided pacemaker leads are stable. Sternotomy wires and post CABG changes are seen. There is mild cardiomegaly. No focal consolidation is seen. Lung volumes are normal. There is no pleural effusion or pneumothorax. IMPRESSION: 1. Mild cardiomegaly with no acute pulmonary abnormality seen. Dictated on workstation # [id number] Dict: 07/22/19 0707 Trans: 07/22/19 0716 [facility] [id number] Interpreted by: AMENA LR MD Electronically signed by: Reviewed: Reviewed by Me Departure Impression Primary Impression: Cholelithiases Qualified Codes: K80.20 - Calculus of gallbladder without cholecystitis without obstruction Additional Impression: Colic, biliary Disposition: 01 HOME, SELF-CARE Condition: Stable Departure-Patient Inst. Decision time for Depature: 07:31 Referrals: BILLY OKEEFE MD (PCP/Family) Primary Care Physician ELIUD JORDAN DO Patient Instructions: Gallstones (DC) Add. Discharge Instructions: Eat a bland diet low in fats, spicy food and dairy. Start taking pantoprazole 20 mg twice a day. Call Dr. Jordan, General Surgery, and make an appointment for follow-up to discuss appropriate management and possibly surgical removal of your gallbladder if your symptoms persist. If your pain returns and persists despite Tylenol 1000 mg every 8 hours then please return to the nearest ER. All discharge instructions reviewed with patient and/or family. Voiced understanding. Scripts Pantoprazole Sodium (Pantoprazole Sodium) 20 Mg Tablet. 20 MG PO BID for 30 Days, #60 TAB 0 Refills Prov: ABE VAUGHN 07/22/19 Copy Copies To 1: ELIUD JORDAN TITUS J Jul 22, 2019 06:15
[2019-07-22 06:17] LABS: BASOPHILS % (AUTO) 0 % (0-10); EOSINOPHILS # (AUTO) 0.1 10^3/uL (0.0-0.3); EOSINOPHILS % (AUTO) 1 % (0-10); HEMATOCRIT 49 % (40-54); HEMOGLOBIN 16.6 G/DL (13.3-17.7); LYMPHOCYTES # (AUTO) 1.7 X 10^3 (1.0-4.0); LYMPHOCYTES % (AUTO) 20 % (12-44); MEAN CORPUSCULAR HEMOGLOBIN 31 PG (25-34); MEAN CORPUSCULAR HGB CONC 34 G/DL (32-36); MEAN CORPUSCULAR VOLUME 91 FL (80-99); MEAN PLATELET VOLUME 9.9 FL (7.4-10.4); MONOCYTES # (AUTO) 0.6 X 10^3 (0.0-1.0); MONOCYTES % (AUTO) 7 % (0-12); NEUTROPHILS % (AUTO) 71 % (42-75); PLATELET COUNT 121 10^3/uL (130-400); RED CELL DISTRIBUTION WIDTH 14.8 % (10.0-14.5); WHITE BLOOD COUNT 8.4 10^3/uL (4.3-11.0)
[2019-07-22 06:18] LABS: BILIRUBIN,URINE NEGATIVE (NEGATIVE); CLARITY,URINE CLEAR; COLOR,URINE YELLOW; GLUCOSE, URINE (UA) NEGATIVE (NEGATIVE); KETONES,URINE NEGATIVE (NEGATIVE); LEUKOCYTE ESTERASE ,URINE NEGATIVE (NEGATIVE); NITRITE,URINE NEGATIVE (NEGATIVE); PH,URINE 5.5 (5-9); PROTEIN,URINE NEGATIVE (NEGATIVE)
[2019-07-22 06:29] LABS: ALANINE AMINOTRANSFERASE 38 U/L (0-55); ALBUMIN 4.5 GM/DL (3.2-4.5); ALKALINE PHOSPHATASE 143 U/L (40-136); BILIRUBIN,TOTAL 0.6 MG/DL (0.1-1.0); BUN/CREATININE RATIO 21; CALCIUM 9.7 MG/DL (8.5-10.1); CARBON DIOXIDE 23 MMOL/L (21-32); CHLORIDE 106 MMOL/L (98-107); CREATININE SERUM 1.03 MG/DL (0.60-1.30); GFR ESTIMATED > 60; GLUCOSE 106 MG/DL (70-105); LIPASE 90 U/L (8-78); POTASSIUM 4.1 MMOL/L (3.6-5.0); SODIUM 140 MMOL/L (135-145); TOTAL PROTEIN 7.7 GM/DL (6.4-8.2)
[2019-07-22 06:34] LABS: BACTERIA,URINE TRACE /HPF; SQUAMOUS EPITHELIAL CELL,UR RARE /HPF
[2019-07-22] MEDS ORDERED: HOLD METFORMIN - RECEIVED CONTRAST 20 ML VIAL IV SCH (07:15)
[2019-07-22] MEDS ORDERED: NS 100 ML (IVPB) BAG IV ONE (07:15)
[2019-07-22] MEDS ORDERED: IOHEXOL 350 MG/ML 100 ML (OMNIPAQUE 350) VIAL IV ONE (07:15)
--- NOTE | 2019-07-22 07:16 | Diagnostic Imaging Report ---
HISTORY: Right upper quadrant pain. TECHNIQUE: Frontal view of the chest COMPARISON: 06/24/2017 FINDINGS: Left-sided pacemaker leads are stable. Sternotomy wires and post CABG changes are seen. There is mild cardiomegaly. No focal consolidation is seen. Lung volumes are normal. There is no pleural effusion or pneumothorax. IMPRESSION: 1. Mild cardiomegaly with no acute pulmonary abnormality seen. Dictated by: Dictated on workstation # [id number]
--- NOTE | 2019-07-22 07:24 | Diagnostic Imaging Report ---
PROCEDURE: CT abdomen and pelvis with contrast. TECHNIQUE: Multiple contiguous axial images were obtained through the abdomen and pelvis after administration of intravenous contrast. Auto Exposure Controls were utilized during the CT exam to meet ALARA standards for radiation dose reduction. INDICATION: Right upper quadrant pain for 5 hours. History of triple bypass. COMPARISON: 05/31/2010 FINDINGS: There is dependent atelectasis in the lung bases. The heart is large. There is no pericardial effusion. The liver demonstrates no focal lesions. The spleen appears normal. Multiple small calcified stones are seen in the gallbladder. The pancreas is unremarkable. The adrenal glands appear normal. There are simple appearing cysts in the kidneys bilaterally. The largest is on the inferior right kidney measuring up to 5.3 cm in size. The bowel loops are nondistended without obstruction. The appendix appears normal. The descending and sigmoid colon appear decompressed. There is no free fluid or free air seen. The aorta is normal in caliber. There is a fat-containing periumbilical hernia containing fluid. No bowel involvement is seen. No acute osseous abnormality is seen. There is a left hip arthroplasty. IMPRESSION: 1. Cholelithiasis. 2. Fat and fluid containing periumbilical hernia. No bowel involvement. 3. 5 cm right renal cyst with no hydronephrosis. 4. Cardiomegaly. Dictated by: Dictated on workstation # [id number]
[2019-07-22] MEDS ORDERED: PANT20TA3 PO (07:34)
[2019-07-22 07:56] VITALS: BP 150/66
== END 2019-07-22 07:56 | disposition home or self-care (01) ==
LOC: EDUNIT# 05:29 → ER 05:31
DX: K80.20 Calculus of gallbladder without cholecystitis without obstruction (principal); K80.50 Calculus of bile duct without cholangitis or cholecystitis without obstruction; E03.9 Hypothyroidism, unspecified; I10 Essential (primary) hypertension; I25.10 Atherosclerotic heart disease of native coronary artery without angina pectoris; E78.00 Pure hypercholesterolemia, unspecified; K21.9 Gastro-esophageal reflux disease without esophagitis; Z79.82 Long term (current) use of aspirin; Z95.0 Presence of cardiac pacemaker; Z88.2 Allergy status to sulfonamides; Z95.1 Presence of aortocoronary bypass graft; Z95.5 Presence of coronary angioplasty implant and graft
CPT/HCPCS: 36415; 71045; 74177; 80053; 81000; 83690; 84484; 85025; 93041; 96361; 96374; 96375

== ENCOUNTER 2020-03-04 06:53 | Day surgery (SDC) | payer MEDICARE ==
[2020-03-04] VITALS (8 sets, daily range): BP systolic 130–143; BP diastolic 74–98
[~2020-03-04] VITALS: Ht 167 cm; Wt 96.2 kg
[~2020-03-04 06:53] MED LIST changes: +FURO-125 PO; +METO-333 PO; +PANT20TA3 PO; +PRAV20TA3 PO
[2020-03-04] MEDS ORDERED: NS IV 1000 ML 1,000 ML IV ONE (06:55)
[2020-03-04] MEDS ORDERED: LIDOCAINE 1% INJ 20 ML 20 ML VIAL ONE (06:56)
[2020-03-04] MEDS ORDERED: HEParin (CATH LAB) 1,000 ML IV ONE (06:56)
[2020-03-04] MEDS ORDERED: NS IV 1000 ML 1,000 ML ONE (06:56)
[2020-03-04] MEDS ORDERED: BACITRACIN INJECTION 50,000 UNIT, SODIUM CHLORIDE 0.9% IRRIGATIO 500 ML IR ONE ×2 (07:00)
[2020-03-04 07:23] LABS: BILIRUBIN,URINE NEGATIVE (NEGATIVE); CLARITY,URINE CLEAR; COLOR,URINE YELLOW; GLUCOSE, URINE (UA) NEGATIVE (NEGATIVE); HEMOGLOBIN 16.1 G/DL (13.3-17.7); KETONES,URINE NEGATIVE (NEGATIVE); LEUKOCYTE ESTERASE ,URINE NEGATIVE (NEGATIVE); MEAN PLATELET VOLUME 10.2 FL (7.4-10.4); NITRITE,URINE NEGATIVE (NEGATIVE); PROTEIN,URINE NEGATIVE (NEGATIVE); RED CELL DISTRIBUTION WIDTH 15.2 % (10.0-14.5)
[2020-03-04] MEDS ORDERED: POTA10CA43 PO (07:29)
[2020-03-04] MEDS ORDERED: ceFAZolin INJECTION 1,000 MG ONE (07:30)
[2020-03-04 07:32] LABS: BACTERIA,URINE NEGATIVE /HPF; SQUAMOUS EPITHELIAL CELL,UR RARE /HPF; WBC,URINE 0-2 /HPF
[2020-03-04] MEDS ORDERED: NS (IVPB) 50 ML ONE (07:32)
[2020-03-04] MEDS ORDERED: MIDAZOLAM 5 MG/5 ML (VERSED) VIAL ONE (07:37)
[2020-03-04] MEDS ORDERED: fentaNYL INJECTION 100 MCG/2 ML AMP ONE (07:37)
[2020-03-04 07:39] LABS: INR 1.1 (0.8-1.4); PROTHROMBIN TIME PATIENT 14.2 SEC (12.2-14.7)
[2020-03-04 07:42] LABS: ALANINE AMINOTRANSFERASE 37 U/L (0-55); ALBUMIN 4.2 GM/DL (3.2-4.5); ALKALINE PHOSPHATASE 135 U/L (40-136); BILIRUBIN,TOTAL 0.7 MG/DL (0.1-1.0); BUN/CREATININE RATIO 18; CALCIUM 9.3 MG/DL (8.5-10.1); CARBON DIOXIDE 21 MMOL/L (21-32); CHLORIDE 108 MMOL/L (98-107); CHOLESTEROL 126 MG/DL (< 200); CREATININE SERUM 1.14 MG/DL (0.60-1.30); GFR ESTIMATED > 60; GLUCOSE 108 MG/DL (70-105); HDL CHOLESTEROL 31 MG/DL (40-60); POTASSIUM 4.2 MMOL/L (3.6-5.0); SODIUM 143 MMOL/L (135-145); TOTAL PROTEIN 7.3 GM/DL (6.4-8.2); TRIGLYCERIDES 111 MG/DL (<150); VLDL CHOLESTEROL 22 MG/DL (5-40)
--- NOTE | 2020-03-04 07:50 | Diagnostic Imaging Report ---
INDICATION: Preop. Comparison with 07/22/2019. FINDINGS: Cardiomegaly with median sternotomy changes and ICD pacer are again noted. The lungs are well-aerated. No infiltrates on today's exam. Pulmonary vasculature is normal. No pneumothorax or pleural effusion. IMPRESSION: Cardiomegaly with postoperative residue. No acute abnormalities. Dictated by: Dictated on workstation # [id number]
--- NOTE | 2020-03-04 09:26 | Cardiac Procedure Note-CS/ASA ---
Pre-Procedure Note Pre-Op Procedure Note H&P Reviewed The H&P was reviewed, patient examined and no changes noted. Date H&P Reviewed: Mar 04, 2020 Time H&P Reviewed: 09:25 Conscious Sedation Pre-Proced Time 09:25 ASA Score 3 For ASA 3 and 4: Consider anesthesia and medical clearance. Also, for patients with a history of failed moderate sedation consider anesthesia. Airway Lungs Heart ASA score ASA 1: a normal healthy patient ASA 2: a patient with a mild systemic disease (mid diabetes, controlled hypertension, obesity x ASA 3: a patient with a severe systemic disease that limits activity (angina, COPD, prior Myocardial infarction) ASA 4: a patient with an incapacitating disease that is a constant threat to life (CHF, renal failure) ASA 5: a moribund patient not expected to survive 24 hrs. (ruptured aneurysm) ASA 6: a declared brain- patient whose organs are being harvested. For emergent operations, add the letter E after the classification Mallampati Classification Grade 3 Sedation Plan Analgesia, Amnesia, Plan communicated to team members, Discussed options with patient/fam, Discussed risks with patient/fam The patient is an appropriate candidate to undergo the planned procedure, sedation, and anesthesia. The patient immediately re-assessed prior to indication. JEOVANY ROBLERO MD Mar 04, 2020 09:26
[2020-03-04] MEDS ORDERED: NS IV 1000 ML 1,000 ML IV SCH (10:12)
[2020-03-04] MEDS ORDERED: CEFU500T63 PO (10:14)
--- NOTE | 2020-03-04 10:14 | Discharge Inst-Post CATH ---
Discharge Inst-CATH/EP Problems Reviewed?: Yes Post Cardiac Cath/EP D/C Inst Follow Up/Plan Appointment with Dr. Jurado's office in 2 weeks <b>CARDIAC CATH/EP PROCEDURE DISCHARGE INSTRUCTIONS</b> ACTIVITY * Go Home directly and rest. * Limit activity of the leg (or wrist if it was used) for 7 days including aerobics, swimming, jogging, bicycling, etc. * Restrict stair-climbing for 7 days if possible, if not, climb up with your non-cath leg, then bring together on the same step. * Avoid lifting, pushing, pulling or excessive movement of the affected extremity for 7 days. * Customary sexual activity may be resumed after 2 days-use caution not to use a position that strains or causes pain to the affected extremity. * No driving for 24 hours. * NO SMOKING. * Avoid straining for bowel movements for 7 days. * Gentle walking on level ground is allowed. * Returning to work will depend on the type of procedure and the results. Your doctor will discuss this with you. CALL YOUR DOCTOR FOR ANY OF THE FOLLOWING: *If bleeding from the puncture site occurs- Apply gentle pressure to site with clean cloth and call your doctor or EMS. * If a knot or lump forms under the skin, increases in size, or causes pain. * If bruising appears to be worsening or moving further down your leg instead of disappearing. * Temperature above 101 F. CARE OF YOUR GROIN INCISION; * Bruising or purple discoloration of the skin near the puncture site is common. * You may shower only, no bathtub bathing for 5 days. Be careful to avoid slipping as your leg may feel stiff. * If a closure device was used on your femoral artery, please see the attached guide regarding care of the device and your leg. * Leave dressing on FOR 24 hours. CARE OF YOUR WRIST INCISION; * Bruising or purple discoloration of the skin near the puncture site is common. * You may shower. * DO NOT submerge wrist. * Leave dressing on FOR 24 hours. JEOVANY JURADO MD Mar 04, 2020 10:14
[2020-03-04] MEDS ORDERED: PATIENT MAY USE OWN MEDS, ALL PO SCH (10:15)
--- NOTE | 2020-03-04 10:21 | Packmaker Change ---
Pacemaker Change Physician (s)/Perforator Loader (s) Physician JEOVANY ROBLERO MD Pre-Procedure Diagnosis Pre-Procedure Diagnosis: Complete heart block, pacemaker generator change Post-Procedure Note Procedure Start Date: Mar 04, 2020 Name of Procedure: Dual-chamber pacemaker generator change Findings/Procedure Note 79 years old gentleman with history of complete heart block, sinus node dysfunction, has dual-chamber pacemaker, reached ANA PAULA. Scheduled for generator change. After explaining the procedure to the patient on Prozac and cons were explained HIS were answered, patient was placed on the cardiac catheterization laboratory signed a consent and then conscious sedation achieved using Versed and fentanyl, local anesthesia applied to the left pectoral area and skin incision was made, cauterization to old the skin using was made. Then the old device was retrieved . A new Medtronic dual-chamber pacemaker was placed GENO STANTON, Serial [id number] was attached to the leads, testing of the device showed good sensing and capture activity. It was placed in the pocket and the pocket was sutured on 2 Layers with no complication Device GENO STANTON [id number] Atrial Lead [id number] bipolar, P-wave 4.4 mV, impedance 342, threshold 0.4 ms at 0.75 V Ventricular lead [id number], R wave 8.8 mV, impedance 437, threshold 0.4 ms at 0.75 V Conclusion Successful dual-chamber pacemaker generator replacement with no complication Anesthesia Type: Conscious Sedation Estimated blood loss (mL): 5 ml Contrast Amount: 0 ml Post-Procedure Diagnosis Post-operative diagnosis: Complete heart block Cardiac pacemaker Hypertension Hyperlipidemia JEOVANY ROBLERO MD Mar 04, 2020 10:20
[2020-03-04] MEDS ORDERED: ceFAZolin INJECTION 1,000 MG in WATER (STERILE) FOR INJECTION 10 ML IV SCH (14:00)
== END 2020-03-04 12:45 | disposition home or self-care (01) ==
LOC: CATH 06:53 → SDC 10:49 → CATH 12:45
PROVIDERS: ATTEND Internal Medicine Cardiovascular Disease
DX: I44.2 Atrioventricular block, complete (principal); E78.5 Hyperlipidemia, unspecified; I49.5 Sick sinus syndrome; E03.9 Hypothyroidism, unspecified; I11.0 Hypertensive heart disease with heart failure; I50.9 Heart failure, unspecified; I65.29 Occlusion and stenosis of unspecified carotid artery; I25.10 Atherosclerotic heart disease of native coronary artery without angina pectoris; Z79.82 Long term (current) use of aspirin; Z79.899 Other long term (current) drug therapy; Z88.2 Allergy status to sulfonamides; Z88.8 Allergy status to other drugs, medicaments and biological substances; Z80.9 Family history of malignant neoplasm, unspecified; Z83.511 Family history of glaucoma
CPT/HCPCS: 33228; 71045; 80053; 80061; 81000; 85027; 85610; 85730; 87081; C1785; 36415

== ENCOUNTER → 2020-08-24 | Outpatient (CLI) | payer MEDICARE ==
[~2020-08-24] MED LIST changes: +CEFU500T63 PO; +PANT20TA18 PO; -PANT20TA3 PO; +POTA10CA43 PO
== END ==
LOC: CARD 10:44
PROVIDERS: ATTEND Internal Medicine Cardiovascular Disease
DX: I08.3 Combined rheumatic disorders of mitral, aortic and tricuspid valves (principal); I10 Essential (primary) hypertension
CPT/HCPCS: 93306

== ENCOUNTER 2021-07-01 01:47 | Emergency (ER) | payer MEDICARE ==
[~2021-07-01] VITALS: Ht 168 cm; Wt 94.0 kg
[2021-07-01 02:25] LABS: MONOCYTES % (AUTO) 8 % (0-12)
[2021-07-01 02:27] LABS: BASOPHILS % (AUTO) 1 % (0-10); EOSINOPHILS # (AUTO) 0.2 10^3/uL (0.0-0.3); EOSINOPHILS % (AUTO) 2 % (0-10); HEMATOCRIT 47 % (40-54); HEMOGLOBIN 15.7 g/dL (13.3-17.7); LYMPHOCYTES # (AUTO) 1.6 10^3/uL (1.0-4.0); LYMPHOCYTES % (AUTO) 19 % (12-44); MEAN CORPUSCULAR HEMOGLOBIN 30 pg (25-34); MEAN CORPUSCULAR HGB CONC 34 g/dL (32-36); MEAN CORPUSCULAR VOLUME 89 fL (80-99); MEAN PLATELET VOLUME 9.7 fL (9.0-12.2); MONOCYTES # (AUTO) 0.7 10^3/uL (0.0-1.0); NEUTROPHILS # (AUTO) 5.7 10^3/uL (1.8-7.8); NEUTROPHILS % (AUTO) 69 % (42-75); PLATELET COUNT 119 10^3/uL (130-400); WHITE BLOOD COUNT 8.3 10^3/uL (4.3-11.0)
[2021-07-01] MEDS ORDERED: NS IV 1000 ML 1,000 ML IV SCH (02:30)
[2021-07-01] MEDS ORDERED: ONDANSETRON 4 MG/2 ML (SDV) Z0FRAN ONE (02:42)
[2021-07-01 02:45] LABS: CALCIUM 9.8 MG/DL (8.5-10.1)
[2021-07-01] MEDS ORDERED: ONDANSETRON 4 MG/2 ML (SDV) Z0FRAN IVP ONE (02:45)
[2021-07-01 02:46] LABS: TOTAL PROTEIN 7.2 GM/DL (6.4-8.2)
[2021-07-01 02:48] LABS: BILIRUBIN,TOTAL 0.7 MG/DL (0.1-1.0)
[2021-07-01 02:50] LABS: CREATININE SERUM 1.1 MG/DL (0.60-1.30)
--- NOTE | 2021-07-01 04:35 | ED Abdominal Pain ---
General Chief Complaint: Abdominal/GI Problems Stated Complaint: RT UPPER ABD PAIN Nursing Triage Note: PT AMB TO ED WITH C/O RUQ PAIN BEGINNING AT 2030 LAST NIGHT. DESCRIBES PAIN CONSTANT ACHE, RATES 10/10. PT HAS BEEN NAUSEOUS, NO EMESIS. Source of Information: Patient, Spouse Exam Limitations: No Limitations History of Present Illness Date Seen by Provider: Jul 01, 2021 Time Seen by Provider: 02:15 Initial Comments Patient to ER by private conveyance with his spouse and chief complaint that he started having pain about 830 last night. Took some [id number] pain medicine with no relief at 1030. Pain is in his right upper quadrant abdomen. It is sharp, waxing and waning. He has had history of three-vessel CABG but no abdominal surgeries. He had a normal formed bowel movement the day before. He is passing gas. He is having nausea without vomiting. No fevers or chills. Not on blood thinners Allergies and Home Medications Allergies Coded Allergies: Sulfa (Sulfonamide Antibiotics) (Verified Allergy, Unknown, 07/22/19) Patient Home Medication List Home Medication List Reviewed: Yes Allopurinol (Zyloprim) 300 Mg Tab, 300 MG PO HS, (Reported) Entered as Reported by: JACOB CORRAL on 01/07/1023 Amlodipine Besylate (Norvasc Tablet) 10 Mg Tablet, 10 MG PO DAILY, (Reported) Entered as Reported by: MAT MUNOZ on 02/08/11 1701 Aspirin (Aspirin 81 Mg Chew Tab) 81 Mg Chew, 81 MG PO DAILY, (Reported) Entered as Reported by: JACOB CORRAL on 01/07/10 001 Cefuroxime Axetil (Cefuroxime) 500 Mg Tablet, 500 MG PO BID Prescribed by: JEOVANY ROBLERO on 03/04/20 1014 Furosemide (Lasix) 20 Mg Tablet, 20 MG PO, (Reported) Entered as Reported by: MATTIE OTERO on 07/22/19 0547 Levothyroxine Sodium (Levothyroxine 25 Mcg Tab) 25 Mcg Tablet, 50 MCG PO DAILY, (Reported) Entered as Reported by: JACOB CORRAL on 01/07/1023 Lisinopril (Zestril) 20 Mg Tablet, 20 MG PO HS, (Reported) Entered as Reported by: JACOB CORRAL on 01/07/1015 Metoprolol Tartrate (Metoprolol Tartrate) 25 Mg Tablet, 25 MG PO BID, (Reported) Entered as Reported by: MATTIE OTERO on 07/22/19 0547 Potassium Chloride (Potassium Chloride) 10 Meq Capsule.er, 10 MEQ PO DAILY, (Reported) Entered as Reported by: ELIUD PHELPS on 03/04/20 0729 Pravastatin Sodium (Pravastatin Sodium) 20 Mg Tablet, 20 MG PO, (Reported) Entered as Reported by: MATTIE OTERO on 07/22/19 0547 Review of Systems Review of Systems Constitutional: No chills, No diaphoresis EENTM: No Blurred Vision, No Double Vision Respiratory: Denies Cough, Denies Shortness of Air Cardiovascular: Denies Chest Pain, Denies Lightheadedness Gastrointestinal: See HPI; Denies Abdomen Distended; Abdominal Pain; Denies Constipated, Denies Diarrhea; Nausea; Denies Poor Fluid Intake, Denies Vomiting Genitourinary: Denies Burning, Denies Discharge Musculoskeletal: No back pain, No joint pain Skin: No change in color, No pruritus, No rash Psychiatric/Neurological: Denies Headache, Denies Numbness All Other Systems Reviewed Negative Unless Noted: Yes Past Rpufkml-Lwtqmg-Dekxyl Hx Patient Social History Tobacco Use?: No Use of E-Cig and/or Vaping dev: No Substance use?: No Alcohol Use?: No Pt feels they are or have been: No Immunizations Up To Date Tetanus Booster (TDap): Unknown Influenza Vaccine Up-to-Date: No; Not Current First/Initial COVID19 Vaccinat: 2020 Second COVID19 Vaccination Kieran: 2020 Third COVID19 Vaccination Date: MAY 2021 COVID19 Vaccine [employer]: [employer] Past Medical History Surgery/Hospitalization HX: TRIPLE BIPASS Surgeries: Yes (LEFT HIP REPLACEMENT) CABG, Coronary Stent, Pacemaker Respiratory: Yes Sleep Apnea Currently Using CPAP: Yes Cardiac: Yes Coronary Artery Disease, High Cholesterol, Hypertension Neurological: No Genitourinary: No Gastrointestinal: Yes Gastroesophageal Reflux Musculoskeletal: Yes Arthritis Endocrine: Yes Hypothyroidsim HEENT: No Cancer: No Psychosocial: No Integumentary: No Blood Disorders: No Physical Exam Vital Signs Vital Signs - First Documented 07/01/21 01:55 Temp 36.4 Pulse 62 Resp 18 B/P (MAP) 143/73 (96) Pulse Ox 96 O2 Delivery Room Air Capillary Refill : Less Than 3 Seconds Height/Weight/BMI Height: 5'6.00" Weight: 210lbs. 0.0oz. [id number]; 33.00 BMI Method:Stated General Appearance: WD/WN, mild distress HEENT: PERRL/EOMI, pharynx normal Neck: non-tender, full range of motion, supple, normal inspection Respiratory: lungs clear, normal breath sounds, no respiratory distress, no accessory muscle use Cardiovascular: normal peripheral pulses, regular rate, rhythm Peripheral Pulses: 2+ Radial Pulses (R), 2+ Radial Pulses (L) Gastrointestinal: normal bowel sounds, soft, tenderness (Right upper quadrant with Ramon sign) Extremities: normal range of motion, normal capillary refill Neurologic/Psychiatric: alert, normal mood/affect, oriented x 3 Skin: normal color, warm/dry Progress/Results/Core Measures Results/Orders Lab Results Laboratory Tests Test 07/01/21 02:15 Range/Units White Blood Count 8.3 4.3-11.0 10^3/uL Red Blood Count 5.29 4.30-5.52 10^6/uL Hemoglobin 15.7 13.3-17.7 g/dL Hematocrit 47 40-54 % Mean Corpuscular Volume 89 80-99 fL Mean Corpuscular Hemoglobin 30 25-34 pg Mean Corpuscular Hemoglobin Concent 34 32-36 g/dL Red Cell Distribution Width 15.3 H 10.0-14.5 % Platelet Count 119 L 130-400 10^3/uL Mean Platelet Volume 9.7 9.0-12.2 fL Immature Granulocyte % (Auto) 1 % Neutrophils (%) (Auto) 69 42-75 % Lymphocytes (%) (Auto) 19 12-44 % Monocytes (%) (Auto) 8 0-12 % Eosinophils (%) (Auto) 2 0-10 % Basophils (%) (Auto) 1 0-10 % Neutrophils # (Auto) 5.7 1.8-7.8 10^3/uL Lymphocytes # (Auto) 1.6 1.0-4.0 10^3/uL Monocytes # (Auto) 0.7 0.0-1.0 10^3/uL Eosinophils # (Auto) 0.2 0.0-0.3 10^3/uL Basophils # (Auto) 0.0 0.0-0.1 10^3/uL Immature Granulocyte # (Auto) 0.1 0.0-0.1 10^3/uL Percent Immature Platelet Fraction 2.5 0.0-7.6 % Sodium Level 140 135-145 MMOL/L Potassium Level 4.0 3.6-5.0 MMOL/L Chloride Level 103 98-107 MMOL/L Carbon Dioxide Level 26 21-32 MMOL/L Anion Gap 11 5-14 MMOL/L Blood Urea Nitrogen 22 H 7-18 MG/DL Creatinine 1.10 0.60-1.30 MG/DL Estimat Glomerular Filtration Rate 64 BUN/Creatinine Ratio 20 Glucose Level 137 H 70-105 MG/DL Calcium Level 9.8 8.5-10.1 MG/DL Corrected Calcium 9.8 8.5-10.1 MG/DL Total Bilirubin 0.7 0.1-1.0 MG/DL Aspartate Amino Transf (AST/SGOT) 27 5-34 U/L Alanine Aminotransferase (ALT/SGPT) 30 0-55 U/L Alkaline Phosphatase 135 40-136 U/L C-Reactive Protein High Sensitivity 0.28 0.00-0.50 MG/DL Total Protein 7.2 6.4-8.2 GM/DL Albumin 4.0 3.2-4.5 GM/DL Lipase 20 8-78 U/L My Orders Orders - ABE VAUGHN Cbc With Automated Diff (07/01/21 02:17) Comprehensive Metabolic Panel (07/01/21 02:17) Hs C Reactive Protein (07/01/21 02:17) Lipase (07/01/21 02:17) Ct Abdomen/Pelvis W (07/01/21 02:17) Ed Iv/Invasive Line Start (07/01/21 02:17) Ns Iv 1000 Ml (Sodium Chloride 0.9%) (07/01/21 02:30) Ondansetron Injection (Zofran Injectio (07/01/21 02:45) Ondansetron Injection (Zofran Injectio (07/01/21 02:42) Iohexol Injection (Omnipaque 350 Mg/Ml 1 (07/01/21 04:45) Received Contrast (Hold Metformin- Contr (07/01/21 04:45) Ns (Ivpb) (Sodium Chloride 0.9% Ivpb Bag (07/01/21 04:45) Diatrizoate Meglum/Sodium 37% (Gastrogra (07/01/21 04:45) Medications Given in ED Current Medications Medications Dose Ordered Sig/Charly Route Start Time Stop Time Status Last Admin Dose Admin Diatrizoate Meglum/ Diatrizoate Sod 10 ml ONCE ONCE PO 07/01/21 04:45 07/01/21 04:46 UNV 07/01/21 04:37 10 ML Iohexol 100 ml ONCE ONCE IV 07/01/21 04:45 07/01/21 04:46 UNV 07/01/21 04:37 100 ML Ondansetron HCl 8 mg ONCE ONCE IVP 07/01/21 02:45 07/01/21 02:46 DC 07/01/21 02:47 8 MG Sodium Chloride 100 ml ONCE ONCE IV 07/01/21 04:45 07/01/21 04:46 UNV 07/01/21 04:37 80 ML Vital Signs/I&O 07/01/21 01:55 Temp 36.4 Pulse 62 Resp 18 B/P (MAP) 143/73 (96) Pulse Ox 96 O2 Delivery Room Air Blood Pressure Mean: 96 Progress Progress Note #1: Time: 04:34 Progress Note Patient is nausea and pain is better after some antiacids and Zofran. His labs are unrevealing. Suspicious of gallbladder. CT reveals gallstones. Progress Note #2: Time: 05:19 Progress Note Patient is still feeling pretty good. No nausea. His pain is 1 out of 10. We discussed an elective cholecystectomy. He would like to follow-up with Dr. Blanco. We will give him some pain medication nausea medicine and put him on pantoprazole. Diagnostic Imaging Diagonstic Imaging: CT (With oral and IV contrast) Plain Films/CT/US/NM/MRI: abdomen, pelvis Comments [facility], [place] NAME: [facility] REC#: [id number] PT STATUS: REG ER : 1940 PHYSICIAN: ABE VAUGHN MD ADMIT DATE: 07/01/21/ER Draft Date of Exam:07/01/21 CT ABDOMEN/PELVIS W PROCEDURE: CT abdomen and pelvis with contrast. TECHNIQUE: Multiple contiguous axial images were obtained through the abdomen and pelvis after administration of intravenous contrast. Auto Exposure Controls were utilized during the CT exam to meet ALARA standards for radiation dose reduction. All CT scans use one or more of the following dose optimizing techniques: automated exposure control, MA and/or KvP adjustment based on patient size and exam type or iterative reconstruction. INDICATION: Right upper quadrant pain The previous CT abdomen/pelvis exam of 07/22/2019 noted cholelithiasis but failed to show any sign of acute cholecystitis. On this exam, there is again evidence of multiple gallstones within the gallbladder. The gallbladder wall does not seem thickened nor is there any pericholecystic fluid to suggest acute cholecystitis. However, if further evaluation of the gallbladder is desired, then ultrasound would be recommended. The stomach is distended by fluid and particulate matter and difficult to assess. The cyst associated with the kidney seen previously are again evident and no different. The liver, spleen, pancreas, adrenals, aorta and inferior vena cava show no sign of an acute abnormality. The portal vein was not well opacified. The previous study did show fluid and fat-containing inguinal hernia. There is no incarceration of the bowel. Those findings are again evident on this study although the amount of fluid has decreased somewhat. There is no pelvic mass or free fluid collection. The pelvic contents are partially obscured by streak artifact related to the total hip prosthesis on the left, however. The appendix was not well-visualized but there are no indirect signs of acute appendicitis. The bone windows show no evidence for a fracture or for a destructive lesion. There is still mild dependent atelectasis in both lung bases as well as cardiomegaly. IMPRESSION: 1. There is cholelithiasis but there is no evidence for acute cholecystitis. Recommendations as above. 2. There is no acute abnormality of the abdomen or pelvis noted otherwise. 3. There is persistent cardiomegaly and dependent atelectasis in both lung bases. Dictated on workstation # [id number] Dict: 07/01/21 0435 Trans: 07/01/21 0447 [facility] [id number] Interpreted by: DARRYL VICTORIA MD Electronically signed by: Reviewed: Reviewed Night [facility] Study, Reviewed by Me Departure Impression Primary Impression: Cholelithiasis Qualified Codes: K80.20 - Calculus of gallbladder without cholecystitis without obstruction Additional Impression: Biliary colic Disposition: HOME, SELF-CARE Condition: Stable Departure-Patient Inst. Decision time for Depature: 05:21 Referrals: BILLY BRENNER MD (PCP/Family) Primary Care Physician CAT BLANCO MD Patient Instructions: Gallbladder Diet, Gallstones (DC) Add. Discharge Instructions: You have large gallstones in your gallbladder which are the most likely cause of your symptoms. Drink plenty of fluids and avoid greasy meals, spicy food or acidic foods. High-fiber diet is recommended. Start taking pantoprazole 40 mg daily to reduce your acid production. If you have further bouts of pain you may use Tums, Rolaids, Maalox, Tylenol. If your pain continues to get worse despite these medications then you can use hydrocodone 1 tablet every 6 hours. Hydrocodone will cause some drowsiness and constipation. I recommend MiraLAX or similar laxatives if he have to use the hydrocodone. Do not drive long distances or operate heavy machinery while under the influence of hydrocodone. If you have nausea you may use Zofran 1 tablet every 6 hours under the tongue and allow to absorb through your mouth. Call Dr. Blanco, general surgery and request a follow-up appointment in the next week to explore an further management of your symptoms. Promptly return to the ER for intractable pain, intractable nausea or fever. All discharge instructions reviewed with patient and/or family. Voiced understanding. Scripts Pantoprazole Sodium (Pantoprazole Sodium) 40 Mg Tablet. 40 MG PO DAILY for 30 Days, #30 TAB 0 Refills Prov: ABE VAUGHN 07/01/21 Ondansetron (Ondansetron Odt) 4 Mg Tab.rapdis 4 MG PO Q6H PRN for NAUSEA/VOMITING, #15 TAB 0 Refills Prov: ABE VAUGHN 07/01/21 Hydrocodone/Acetaminophen (Hydrocodone-Acetamin 5-325 mg) 1 Each Tablet 1 TAB PO Q6H PRN for PAIN-MODERATE (5-7), #15 TAB 0 Refills Prov: ABE VAUGHN 07/01/21 Copy Copies To 1: CAT BLNACO MD, TITUS J Jul 01, 2021 04:35
[2021-07-01] MEDS ORDERED: HOLD METFORMIN - RECEIVED CONTRAST 20 ML VIAL IV SCH (04:45)
[2021-07-01] MEDS ORDERED: DIATRIZOATE MEGLUM/SODIUM 37% 120 ML (GASTROGRAFIN) PO ONE (04:45)
[2021-07-01] MEDS ORDERED: IOHEXOL 350 MG/ML 100 ML (OMNIPAQUE 350) VIAL IV ONE (04:45)
[2021-07-01] MEDS ORDERED: NS 100 ML (IVPB) BAG IV ONE (04:45)
--- NOTE | 2021-07-01 04:49 | Diagnostic Imaging Report ---
PROCEDURE: CT abdomen and pelvis with contrast. TECHNIQUE: Multiple contiguous axial images were obtained through the abdomen and pelvis after administration of intravenous contrast. Auto Exposure Controls were utilized during the CT exam to meet ALARA standards for radiation dose reduction. All CT scans use one or more of the following dose optimizing techniques: automated exposure control, MA and/or KvP adjustment based on patient size and exam type or iterative reconstruction. INDICATION: Right upper quadrant pain The previous CT abdomen/pelvis exam of 07/22/2019 noted cholelithiasis but failed to show any sign of acute cholecystitis. On this exam, there is again evidence of multiple gallstones within the gallbladder. The gallbladder wall does not seem thickened nor is there any pericholecystic fluid to suggest acute cholecystitis. However, if further evaluation of the gallbladder is desired, then ultrasound would be recommended. The stomach is distended by fluid and particulate matter and difficult to assess. The cyst associated with the kidney seen previously are again evident and no different. The liver, spleen, pancreas, adrenals, aorta and inferior vena cava show no sign of an acute abnormality. The portal vein was not well opacified. The previous study did show fluid and fat-containing inguinal hernia. There is no incarceration of the bowel. Those findings are again evident on this study although the amount of fluid has decreased somewhat. There is no pelvic mass or free fluid collection. The pelvic contents are partially obscured by streak artifact related to the total hip prosthesis on the left, however. The appendix was not well-visualized but there are no indirect signs of acute appendicitis. The bone windows show no evidence for a fracture or for a destructive lesion. There is still mild dependent atelectasis in both lung bases as well as cardiomegaly. IMPRESSION: 1. There is cholelithiasis but there is no evidence for acute cholecystitis. Recommendations as above. 2. There is no acute abnormality of the abdomen or pelvis noted otherwise. 3. There is persistent cardiomegaly and dependent atelectasis in both lung bases. Dictated by: Dictated on workstation # [id number]
[2021-07-01] MEDS ORDERED: ACHD5005 PO (05:25)
[2021-07-01] MEDS ORDERED: ONDA4TAB11 PO (05:25)
[2021-07-01] MEDS ORDERED: PANT40TA52 PO (05:25)
[2021-07-01 05:36] VITALS: BP 130/83
== END 2021-07-01 05:36 | disposition home or self-care (01) ==
LOC: EDUNIT# 01:47 → ER 01:49
DX: K80.20 Calculus of gallbladder without cholecystitis without obstruction (principal); K80.50 Calculus of bile duct without cholangitis or cholecystitis without obstruction; G47.30 Sleep apnea, unspecified; I10 Essential (primary) hypertension; I25.10 Atherosclerotic heart disease of native coronary artery without angina pectoris; E78.00 Pure hypercholesterolemia, unspecified; E03.9 Hypothyroidism, unspecified; Z79.82 Long term (current) use of aspirin; Z79.890 Hormone replacement therapy; Z79.899 Other long term (current) drug therapy
CPT/HCPCS: 36415; 74177; 80053; 83690; 85025; 86141; 96374

== ENCOUNTER 2021-07-13 06:38 | Outpatient (CLI) | payer MEDICARE ==
[~2021-07-13] VITALS: Ht 167 cm; Wt 94.0 kg
[~2021-07-13 06:38] MED LIST changes: +ACHD5005 PO; +ONDA4TAB11 PO; +PANT40TA52 PO
[2021-07-13] MEDS ORDERED: AMLO10TA4 PO (19:15)
[2021-07-13] MEDS ORDERED: CA C PO (19:15)
[2021-07-13] MEDS ORDERED: LEVO50TA6 PO (19:15)
[2021-07-13] MEDS ORDERED: ALLO300T2 PO (19:15)
[2021-07-13] MEDS ORDERED: OMG1KC PO (19:15)
[2021-07-13] MEDS ORDERED: LORA10TA7 PO (19:15)
[2021-07-13] MEDS ORDERED: LISI40TA9 PO (19:15)
[2021-07-13] MEDS ORDERED: ASPI-999 PO (19:15)
[2021-07-15] MEDS ORDERED: HYDR-3817 PO (14:00)
== END 2021-07-13 19:18 | disposition home or self-care (01) ==
LOC: PREOP 06:38
PROVIDERS: ATTEND Surgery
DX: Z01.818 Encounter for other preprocedural examination (principal)

== ENCOUNTER 2021-07-15 12:36 | Day surgery (SDC) | payer MEDICARE ==
[2021-07-15] VITALS (10 sets, daily range): BP systolic 127–151; BP diastolic 62–88
[~2021-07-15] VITALS: Ht 167 cm; Wt 94.0 kg
[~2021-07-15 12:36] MED LIST changes: +ALLO300T2 PO; +AMLO10TA4 PO; +ASPI-999 PO; +CA C PO; +LEVO50TA6 PO; +LISI40TA9 PO; +LORA10TA7 PO
[2021-07-15] MEDS: LACTATED RINGERS 1,000 ML IV PRN ×2 (13:30→16:33)
[2021-07-15] MEDS ORDERED: ceFAZolin 2 GM IV Premixed 50 ML IV ONE (13:30)
[2021-07-15] MEDS ORDERED: fentaNYL INJ 100 MCG/2 ML AMP ONE (13:49)
[2021-07-15] MEDS ORDERED: ONDANSETRON 4 MG/2 ML (SDV) Z0FRAN ONE (13:49)
[2021-07-15] MEDS ORDERED: LIDOCAINE PF 2% 5 ML (XYLOCAINE) VIAL ONE (13:49)
[2021-07-15] MEDS ORDERED: GLYCOPYRROLATE 0.2 MG/ML (ROBINUL) 2 ML VIAL ONE (13:49)
[2021-07-15] MEDS ORDERED: NEOSTIGMINE 3 MG/3 ML VIAL ONE (13:49)
[2021-07-15] MEDS ORDERED: ROCURONIUM 50 MG/5 ML (ZEMURON) VIAL IV ONE (13:49)
[2021-07-15] MEDS ORDERED: LIDOCAINE/EPI 2% 1:100,00 (XYLOCAINE) 20 ML VIAL ONE (13:49)
[2021-07-15] MEDS ORDERED: proPOfol 200 MG/20 ML (DIPRIVAN) VIAL IV ONE (13:49)
--- NOTE | 2021-07-15 13:56 | Progress Note-Pre Operative ---
Pre-Operative Progress Note H&P Reviewed The H&P was reviewed, patient examined and no changes noted. Date Seen by Provider: Jul 15, 2021 Time Seen by Provider: 13:30 Date H&P Reviewed: Jul 15, 2021 Time H&P Reviewed: 13:30 Pre-Operative Diagnosis: chronic calculous cholecystitis, sx reducible umbilical hernia CAT LUKE MD Jul 15, 2021 13:56
[2021-07-15] MEDS ORDERED: ONDANSETRON 4 MG/2 ML (SDV) Z0FRAN IVP PRN ×2 (14:00→16:15)
[2021-07-15] MEDS ORDERED: HYDR-3817 PO (14:00)
[2021-07-15] MEDS ORDERED: ACETAMINOPHEN 325 MG TABLET PO PRN (14:00)
[2021-07-15] MEDS ORDERED: morphine INJ 10 MG/ML 1ML (SYR OR VIAL) IVP PRN ×2 (14:00)
[2021-07-15] MEDS ORDERED: oxyCODONE/APAP 5/325MG (PERCOCET 5) TABLET PO PRN (14:00)
--- NOTE | 2021-07-15 14:01 | Discharge Inst-Surgical ---
D/C Lap Instructions-MARLY New, Converted, or Re-Newed RX: RX on Chart Follow Up Appt in 2 weeks Activity as tolerated No driving for 24 hours No [address] while on pain medications Incentive Spirometry use every 2 hours while awake Regular Diet Symptoms to Report: Fever over 101 degree F, Nausea/Vomiting Infection Signs and Symptoms to report: Increased redness, Foul odor of wound, Increased drainage Bathing instructions: May shower Operative Area Clean/Dry; Keep incision clean/dry If any problems/questions: Contact your physician or go to Emergency Room CAT LUKE MD Jul 15, 2021 14:01
[2021-07-15] MEDS ORDERED: SEVOFLURANE (ULTANE) 15 ML INHAL SOLN ONE (15:50)
--- NOTE | 2021-07-15 16:02 | Progress Note-Post Operative ---
Post-Operative Progess Note Surgeon (s)/Mine Technician (s) Surgeon CAT LUKE MD Mine Technician: del canchola CAP SI[employer]ER Pre-Operative Diagnosis chronic calculous cholecystitis, sx reducible umbilical hernia Post-Operative Diagnosis same Procedure & Operative Findings Date of Procedure 07/15/21 Procedure Performed/Findings laparoscopic cholecystectomy and umbilical hernia repair. Anesthesia Type get Estimated Blood Loss Estimated blood loss (mL): minimal Specimens/Packing Specimens Removed gallbladder CAT LUKE MD Jul 15, 2021 16:02
--- NOTE | 2021-07-15 16:11 | Anesthesia-General Post-Op ---
General Patient Condition Mental Status/LOC: Same as Preop Cardiovascular: Satisfactory Nausea/Vomiting: Absent Respiratory: Satisfactory Pain: Controlled Complications: Absent Post Op Complications Complications None Follow Up Care/Instructions Patient Instructions None needed. Anesthesia/Patient Condition Patient Condition Patient is doing well, no complaints, stable vital signs, no apparent adverse anesthesia problems. No complications reported per nursing. GABI AGUIRRE CRNA Jul 15, 2021 16:11
[2021-07-15] MEDS ORDERED: fentaNYL INJ 100 MCG/2 ML AMP IVP ONE (16:15)
[2021-07-15] MEDS ORDERED: MEPERIDINE (DEMEROL) INJ 50 MG/ML IVP ONE (16:15)
[2021-07-15] MEDS ORDERED: morphine INJ 10 MG/ML 1ML (SYR OR VIAL) IVP ONE (16:15)
[2021-07-15] MEDS ORDERED: morphine INJ 10 MG/ML 1ML (SYR OR VIAL) ONE (16:24)
[2021-07-15] MEDS ORDERED: oxyCODONE/APAP 5/325MG (PERCOCET 5) TABLET ONE (17:12)
--- NOTE | 2021-07-16 09:01 | OPERATIVE REPORT ---
DATE OF SERVICE: 07/15/2021 ATTENDING PRIMARY CARE PHYSICIAN: Dr. Lashawn Okeefe. PREOPERATIVE DIAGNOSES: 1. Symptomatic chronic calculous cholecystitis. 2. Symptomatic reducible umbilical hernia. POSTOPERATIVE DIAGNOSES: 1. Symptomatic chronic calculous cholecystitis. 2. Symptomatic reducible umbilical hernia. PROCEDURES: Laparoscopic cholecystectomy, umbilical hernia repair with mesh. SURGEON: Cat Luke MD CORPORATE COMMUNICATIONS SPECIALIST: Gurvinder Suárez APRN. ANESTHESIA: General endotracheal. HISTORY OF PRESENT ILLNESS: Minimal. FINDINGS: Mild gallbladder wall distention, multiple large gallstones, umbilical hernia with preperitoneal fat within the hernia sac. DISPOSITION: The patient tolerated the procedure well. HOSPITAL COURSE: The patient is an 80-year-old male who has had issues with pain in the right upper abdominal quadrant with radiation towards the back, usually following a meal for the past two years. He reports that he had a bad episode 2 weeks ago with significant amounts of pain in the right upper abdominal quadrant, again with radiation towards the back. Ultrasound was performed, which did show gallstones. He also has a symptomatic umbilical hernia, which he states that he has had for many years and initially was not a problem; however, has grown slightly larger in size and become more painful. He was found to have a reducible umbilical hernia. The patient was brought to the operating room, laid supine on the table. After adequate IV pain and sedative medications and general endotracheal intubation, the abdomen was prepped and draped in standard surgical fashion. A 0.5% Marcaine with epinephrine was then used to anesthetize overlying skin in the left upper abdominal quadrant and transverse skin incision made using 15 blade. An 0 silk suture was applied to the medial aspect of the incision for retraction and a Veress needle inserted with low opening pressure of 0 mmHg. The abdomen was then insufflated to 15 mmHg pressure. The Veress needle removed, and a 5 mm XL trocar placed followed by a 5 mm 45-degree angle laparoscope visualizing the peritoneal cavity. A 4-quadrant abdominal exploration was performed. There was mild gallbladder wall thickening. There was an umbilical hernia with preperitoneal fat within the hernia sac. We then proceeded to place a 10 mm port through the hernia defect under direct visualization after the skin and peritoneal lining were anesthetized using 0.5% Marcaine with epinephrine. In a similar manner, a right upper abdominal quadrant 5 mm port was placed. The fundus of the gallbladder was then retracted anteriorly and superiorly, and the patient was then placed in reverse Trendelenburg position as well as plane right side up, left side down. The hepatoduodenal ligament was then dissected using blunt dissection as well as electrocautery on the hook instrument as well as the [place] dissector. The entire critical view of safety was identified including the triangle of Calot as well as the cystic duct and artery as only two structures going into the gallbladder as well as the cystic plate behind the proximal gallbladder. A timeout was then taken, and the cystic duct and artery were then clipped proximally, distally and cut with EndoShears. The gallbladder was then dissected off the liver bed using electrocautery and hook instrument with visualization of good hemostasis as well as no leaking ducts of Luschka. The gallbladder was removed through the 10 mm port site using an EndoCatch bag. We then proceeded to resect the preperitoneal fat within the hernia sac under direct visualization using the hook instrument and this was removed through the 10 mm port site. A 6.4 cm round polypropylene mesh was then placed in the defect and sutured transfascially to the mesh using interrupted 0 Prolene sutures. The outer edge was then tacked with absorbable tacks circumferentially. Good hemostasis was observed. The abdomen was desufflated and remaining ports removed. All skin incisions were closed using 4-0 Monocryl running subcuticular sutures. Wounds were then cleaned and covered with Dermabond. The patient tolerated the procedure well. We will start IV normal pain medication as well as a clear liquid diet. Once he is tolerating clears, has good pain control with oral pain medications, ambulating well, we will discharge him and he will be instructed to do no heavy lifting or exertion for the next two weeks. Job ID: [id number] DocumentID: [id number] Dictated Date: 07/15/2021 16:27:48 Cargo Worker Date: 07/16/2021 08:59:54 Dictated By: CAT LUKE MD
== END 2021-07-15 18:34 ==
LOC: SDC 12:36
PROVIDERS: ATTEND Surgery
DX: K80.12 Calculus of gallbladder with acute and chronic cholecystitis without obstruction (principal); K42.9 Umbilical hernia without obstruction or gangrene; K21.9 Gastro-esophageal reflux disease without esophagitis; I10 Essential (primary) hypertension; I25.10 Atherosclerotic heart disease of native coronary artery without angina pectoris; G47.33 Obstructive sleep apnea (adult) (pediatric); M19.90 Unspecified osteoarthritis, unspecified site; E78.00 Pure hypercholesterolemia, unspecified; E03.9 Hypothyroidism, unspecified; M10.9 Gout, unspecified; Z79.899 Other long term (current) drug therapy; Z79.82 Long term (current) use of aspirin; Z79.890 Hormone replacement therapy
CPT/HCPCS: 47562; 49652; 87081; C1781

== ENCOUNTER → 2021-07-29 | Outpatient (CLI) | payer MEDICARE ==
[~2021-07-29] MED LIST changes: +HYDR-3817 PO
--- NOTE | 2021-07-29 09:10 | Diagnostic Imaging Report ---
PROCEDURE: CT abdomen and pelvis without contrast. TECHNIQUE: Multiple contiguous axial images were obtained through the abdomen and pelvis without the use of intravenous contrast. Auto Exposure Controls were utilized during the CT exam to meet ALARA standards for radiation dose reduction. INDICATION: Abdominal pain and drainage from wound The previous CT abdomen/pelvis exam of 07/01/2021 noted cholelithiasis but failed to show any sign of any sign of acute cholecystitis. Reportedly, the patient underwent a cholecystectomy and an umbilical hernia repair approximately 2 weeks ago. On this exam there are now surgical clips in the gallbladder fossa. There is no mass, hematoma or abscess formation in the gallbladder fossa however. There has also been an umbilical hernia repair in the interval since the prior exam. There is now a wedge-shaped 2.6 x 3.4 cm area of increased density in the region of the previously described umbilical hernia. This may be related to edema/inflammation. There is no mass or abscess identified in this area either. However there is distortion of the mesenteric fat along the anterior aspect of the abdomen in this area. This does suggest edema/inflammation. Again there is no drainable abscess visualized. The overall appearance of the abdomen and pelvis has not changed adversely otherwise. No new abnormality has developed. The lung bases are generally clear. The bone windows show no sign of a fracture or of a destructive lesion. IMPRESSION: 1. There are postoperative changes consistent with an interval cholecystectomy and repair of an umbilical hernia. There is no mass, abscess or fluid collection in the gallbladder fossa. 2. The wedge-shaped area of increased density in the region of the umbilical hernia is most likely due to edema/inflammation. There is also some distortion of the mesenteric fat along the anterior abdominal wall in this region and this does suggest edema/inflammation. However there is no drainable abscess identified. 3. There is no acute abnormality of the abdomen and pelvis noted otherwise. Dictated by: Dictated on workstation # [id number]
== END ==
LOC: RAD 08:45
PROVIDERS: ATTEND Surgery
DX: K42.9 Umbilical hernia without obstruction or gangrene (principal); Z90.49 Acquired absence of other specified parts of digestive tract; Z98.890 Other specified postprocedural states
CPT/HCPCS: 74176

== ENCOUNTER 2021-11-22 09:59 | Emergency (ER) | payer MEDICARE ==
[~2021-11-22] VITALS: Ht 167 cm; Wt 93.0 kg
--- NOTE | 2021-11-22 10:33 | ED Lower Extremity ---
General Chief Complaint: Lower Extremity Stated Complaint: L FOOT PAIN/SWELLING Nursing Triage Note: PT STATES LT FOOT PAIN ON THE BOTTOM OF THE FOOT TOWARDS THE HEEL FOR ABOUT A WEEK OF UNKNOWN CAUSE. Source: patient Exam Limitations: no limitations History of Present Illness Date Seen by Provider: Nov 22, 2021 Time Seen by Provider: 10:15 Initial Comments Patient to the ER by private conveyance with chief complaint of last week he has had some pain started up in the plantar region of his left foot. He states it radiates from in front of his heel to behind the ball. No history of surgeries or fractures. No history of trauma. He does have a little more swelling in his legs and typically wears compression stockings as well as has been elevating his feet at night to help with that. He uses a water pill. Has been using ibuprofen for his pain. He does have a history of gout but says this does not feel like gout. He try to get in with Dr. Baptiste, podiatry but he is out so he came here because he wants an x-ray of his foot Allergies and Home Medications Allergies Coded Allergies: Sulfa (Sulfonamide Antibiotics) (Verified Allergy, Unknown, 07/15/21) Patient Home Medication List Home Medication List Reviewed: Yes Allopurinol (Allopurinol) 300 Mg Tablet, 300 MG PO DAILY, (Reported) Entered as Reported by: JOSE CALDERA on 07/13/211914 Amlodipine Besylate (Norvasc) 10 Mg Tablet, 10 MG PO DAILY, (Reported) Entered as Reported by: JOSE CALDERA on 07/13/211914 Aspirin (Aspirin) 81 Mg Tab.chew, 81 MG PO DAILY, (Reported) Entered as Reported by: JOSE CALDERA on 07/13/211914 Ca Comb No.1/D3/B-6/FA/B12/Av (Vitamin D3-Aloe 1,000 Unit Tab) 1 Each Tablet, 1 EACH PO DAILY, (Reported) Entered as Reported by: JOSE CALDERA on 07/13/211914 Furosemide (Lasix) 20 Mg Tablet, 20 MG PO, (Reported) Entered as Reported by: MATTIE OTERO on 07/22/19 0547 Hydrocodone/Acetaminophen (Hydrocodone-Acetamin 7.5-325) 1 Each Tablet, 1 EACH PO Q4H Prescribed by: CAT LUKE on 07/15/21 1400 Levothyroxine Sodium (Levothyroxine Sodium) 50 Mcg Tablet, 50 MCG PO DAILY, (Reported) Entered as Reported by: JOSE CALDERA on 07/13/211914 Lisinopril (Lisinopril) 40 Mg Tablet, 40 MG PO DAILY, (Reported) Entered as Reported by: JOSE CALDERA on 07/13/211914 Loratadine (Loratadine) 10 Mg Tablet, 10 MG PO DAILY PRN for ALLERGY SYMPTOMS, (Reported) Entered as Reported by: JOSE CALDERA on 07/13/211914 Metoprolol Tartrate (Metoprolol Tartrate) 25 Mg Tablet, 25 MG PO BID, (Reported) Entered as Reported by: MATTIE OTERO on 07/22/19 0547 [place] 3 Polyunsat Fatty Acids (Fish Oil 1,000 mg Capsule) 1,000 Mg Cap, 1,000 MG PO BID, (Reported) Entered as Reported by: JOSE CALDERA on 07/13/211914 Pantoprazole Sodium (Pantoprazole Sodium) 40 Mg Tablet.dr, 40 MG PO DAILY Prescribed by: ABE VAUGHN on 07/01/21 0525 Potassium Chloride (Potassium Chloride) 10 Meq Capsule.er, 10 MEQ PO DAILY, (Reported) Entered as Reported by: ELIUD PHELPS on 03/04/20 0729 Pravastatin Sodium (Pravastatin Sodium) 20 Mg Tablet, 20 MG PO, (Reported) Entered as Reported by: MATTIE OTERO on 07/22/19 0547 Review of Systems Constitutional: No chills, No diaphoresis EENTM: No ear discharge, No ear pain Respiratory: No cough, No short of breath Cardiovascular: No chest pain, No edema Gastrointestinal: No abdominal pain, No nausea Genitourinary: No discharge, No dysuria Musculoskeletal: No back pain; joint pain All Other Systems Reviewed Negative Unless Noted: Yes Past Rpvvmyp-Laxrnk-Nvbdta Hx Patient Social History Tobacco Use?: No Substance use?: No Alcohol Use?: No Immunizations Up To Date Tetanus Booster (TDap): Unknown First/Initial COVID19 Vaccinat: aug 2020 Second COVID19 Vaccination Kieran: september 2020 Third COVID19 Vaccination Date: MAY 2021 COVID19 Vaccine Fulfillment Mail Clerk: MODERNChristine Seasonal Allergies Seasonal Allergies: No Past Medical History Surgery/Hospitalization HX: TRIPLE BIPASS, LT HIP, GALBLADDER, PACEMAKER Surgeries: Yes (LEFT HIP REPLACEMENT) CABG, Coronary Stent, Pacemaker Respiratory: Yes (CPAP IS NOT PORTABLE-UNABLE TO BRING IN) Sleep Apnea Currently Using CPAP: Yes Currently Using BIPAP: No Cardiac: Yes (PACEMAKER) Chronic Edema/Swelling, Coronary Artery Disease, High Cholesterol, Hypertension Neurological: No Genitourinary: No Gastrointestinal: Yes Gastroesophageal Reflux Musculoskeletal: Yes Arthritis Endocrine: Yes Hypothyroidsim HEENT: No Cancer: No Psychosocial: No Integumentary: No Blood Disorders: No Physical Exam Vital Signs Vital Signs - First Documented 11/22/21 10:06 Temp 36.1 Pulse 75 Resp 20 B/P (MAP) 148/83 (104) Pulse Ox 97 O2 Delivery Room Air Capillary Refill : Less Than 3 Seconds Height, Weight, BMI Height: 5'6.00" Weight: 210lbs. 0.0oz. 95.721979lr; 33.00 BMI Method:Stated General Appearance: WD/WN, no apparent distress HEENT: PERRL/EOMI, pharynx normal Neck: full range of motion, supple, normal inspection Progress/Results/Core Measures Results/Orders My Orders Orders - ABE VAUGHN Foot, Left, 3 Views (11/22/21 10:17) Vital Signs/I&O 11/22/21 10:06 Temp 36.1 Pulse 75 Resp 20 B/P (MAP) 148/83 (104) Pulse Ox 97 O2 Delivery Room Air Blood Pressure Mean: 104 Diagnostic Imaging Diagonstic Imaging: Xray Plain Films/CT/US/NM/MRI: other Comments [facility], [place] NAME: IRMA GONCALVES [facility] REC#: [id number] PT STATUS: REG ER : 1940 PHYSICIAN: ABE VAUGHN MD ADMIT DATE: 11/22/21/ER Draft Date of Exam:11/22/21 FOOT, LEFT, 3 VIEWS INDICATION: Left foot pain. AP, oblique, and lateral views of the left foot are obtained. FINDINGS: No fracture or acute bony abnormality is seen. There is degenerative change of the first MTP joint with mild hallux valgus deformity. There are diffuse degenerative changes throughout the interphalangeal joints. IMPRESSION: Degenerative findings of the left foot as described above with no acute appearing abnormality. Dictated on workstation # [id number] Dict: 11/22/21 1047 Trans: 11/22/21 1050 [id number] Interpreted by: SONYA OMER MD Electronically signed by: Reviewed: Reviewed by Me Departure Impression Primary Impression: Plantar fasciitis, left Disposition: 01 HOME, SELF-CARE Condition: Stable Departure-Patient Inst. Decision time for Depature: 12:14 Referrals: REBEKAH FELICIANO DPM, HOLLY A MD (PCP/Family) Primary Care Physician Patient Instructions: Plantar Fasciitis Exercises Add. Discharge Instructions: Please review the handout for some exercises for plantar fasciitis. Call manager track such as Dr. Cho and make a follow-up appointment to get set up for orthotics. For your dependent edema just keep your legs elevated when not in use. If you cannot elevate your legs then you should be wearing compression stockings. All discharge instructions reviewed with patient and/or family. Voiced understanding. Copy Copies To 1: REBEKAH FELICIANO DPM, TITUS J Nov 22, 2021 10:33
--- NOTE | 2021-11-22 10:51 | Diagnostic Imaging Report ---
INDICATION: Left foot pain. AP, oblique, and lateral views of the left foot are obtained. FINDINGS: No fracture or acute bony abnormality is seen. There is degenerative change of the first MTP joint with mild hallux valgus deformity. There are diffuse degenerative changes throughout the interphalangeal joints. IMPRESSION: Degenerative findings of the left foot as described above with no acute appearing abnormality. Dictated by: Dictated on workstation # [id number]
[2021-11-22 12:20] VITALS: BP 148/83
== END 2021-11-22 12:20 | disposition home or self-care (01) ==
LOC: EDUNIT# 09:59 → ER 10:01
DX: M72.2 Plantar fascial fibromatosis (principal)
CPT/HCPCS: 73630

== ENCOUNTER → 2022-02-16 | Outpatient (CLI) | payer MEDICARE ==
[~2022-02-16] VITALS: Ht 167 cm; Wt 94.0 kg
[~2022-02-16] MED LIST changes: +CATHETER FLUSH 10 ML SYR IVP PRN
[2022-02-16 09:26] VITALS: BP 145/79
--- NOTE | 2022-02-17 11:31 | Cardiology Stress Test Report ---
Stress Test Report Date of Procedure/Referring: Date of Procedure: Feb 16, 2022 PCP Billy Okeefe MD Admitting Physician Admitting Physician: Attending Physician: Lynda Espinoza Indications: CAD Baseline Heart Rate: 81 Baseline Blood Pressure: Blood Pressure Systolic: 145 Blood Pressure Diastolic: 79 Vital Signs Date Time Temp Pulse Resp B/P (MAP) Pulse Ox O2 Delivery O2 Flow Rate FiO2 02/16/22 09:26 81 145/79 (101) Baseline Vital Signs Vital Signs Date Time Temp Pulse Resp B/P (MAP) Pulse Ox O2 Delivery O2 Flow Rate FiO2 02/16/22 09:26 81 145/79 (101) Baseline EKG: Baseline EKG: LBBB Summary: After explaining the procedure and details to the patient, he signed the consent and was brought to the stress nuclear laboratory. Patient exercised on standard Mark protocol, EKG, heart rate and blood pressure were monitored continuously, resting and stress doses of radio tracer were injected, imaging was acquired and reviewed in the short axis, horizontal long axis and vertical long axis views Patient was able to exercise for a total of 7 minutes on Mark protocol, METs 7.1 Maximum heart rate 117 Maximum blood pressure 206/113 Stress EKG, Minimal nondiagnostic changes Recovery EKG, Return to baseline TID: 1.1 SSS: 12 SDS: 0 EF: 49 Conclusion: 1. Patient declined to do Lexiscan stress test, he underwent exercise Myoview stress test 2. Fair exercise tolerance for a total of 7 minutes on standard Mark protocol, 7.1 METS achieving 85% of maximal expected heart rate 3. Baseline paced rhythm with left bundle branch block persisted during test 4. Baseline hypertension with peak blood pressure 206/113 during test 5. Fixed defect involving the inferior wall and inferolateral wall 6. Hypokinesia of the inferior wall, ejection fraction 49% Copy Copies To 1: BILLY OKEEFE MD, BASHAR J MD Feb 17, 2022 11:31
== END ==
LOC: CARD 07:49
PROVIDERS: ATTEND Physician Assistant
DX: I25.10 Atherosclerotic heart disease of native coronary artery without angina pectoris (principal)
CPT/HCPCS: 78452; 93017; A9502

== ENCOUNTER → 2022-09-15 | Outpatient (CLI) | payer MEDICARE ==
[~2022-09-15] MED LIST changes: -CATHETER FLUSH 10 ML SYR IVP PRN; -POTA10CA43 PO; +POTA10CA44 PO
== END ==
LOC: CARD 07:46
PROVIDERS: ATTEND Internal Medicine Cardiovascular Disease
DX: I08.0 Rheumatic disorders of both mitral and aortic valves (principal); I11.9 Hypertensive heart disease without heart failure; I25.10 Atherosclerotic heart disease of native coronary artery without angina pectoris
CPT/HCPCS: 93306

== ENCOUNTER 2023-02-06 10:28 | Emergency (ER) | payer MEDICARE ==
--- NOTE | 2023-02-06 11:24 | ED Abdominal Pain ---
General Chief Complaint: Abdominal/GI Problems Stated Complaint: IRREGULAR HEARTBEAT | REACTION TO MEDICATION Nursing Triage Note: PT AMB TO RM 2 WITH WITH C/O ABD PAIN FOR A WEEK AND PT IS WONDERING IF IT HAS ANYTHING TO DO WITH RECENT START OF ELEQUIS. PT STARTED ON PROTONIX 1 WEEK AGO Source of Information: Patient Exam Limitations: No Limitations (SARAH CHAUDHAIR) History of Present Illness Date Seen by Provider: Feb 06, 2023 Time Seen by Provider: 11:21 Initial Comments Patient is a 82-year-old male who presents to the ED for irregular heartbeat and potential reaction to his Eliquis. Patient states he received a phone call a few weeks ago from doctor's [place] office stating that the top part of his heart was beating faster. They contacted Dr. Berger resource specialist and recommend starting Eliquis [address] Jurado was out of town. Since patient started Eliquis started having some mid upper abdominal pain. Pain described as dull intermittent. Contacted their office recommend starting Protonix which the Protonix seem to improve his abdominal pain. Patient also reports feeling short of breath when he bends over to tie his shoe. This improves when he stands up. He has no current abdominal pain, chest pain, cough, shortness of breath, fever, chills. Reports chronic leg swelling but states this improved after increasing his metoprolol and stopping amlodipine. Patient denies of any diarrhea, vomiting, dysuria, fever, chills, body aches, shortness of air with exertion (SARAH CHAUDHARI) Allergies and Home Medications Allergies Coded Allergies: Sulfa (Sulfonamide Antibiotics) (Verified Allergy, Unknown, 07/15/21) Patient Home Medication List Home Medication List Reviewed: Yes (SARAH CHAUDHARI) Allopurinol (Allopurinol) 300 Mg Tablet, 300 MG PO DAILY, (Reported) Entered as Reported by: JOSE CALDERA on 07/13/211914 Amlodipine Besylate (Norvasc) 10 Mg Tablet, 10 MG PO DAILY, (Reported) Entered as Reported by: JOSE CALDERA on 07/13/211914 Aspirin (Aspirin) 81 Mg Tab.chew, 81 MG PO DAILY, (Reported) Entered as Reported by: JOSE CALDERA on 07/13/211914 Ca Comb No.1/D3/B-6/FA/B12/Av (Vitamin D3-Aloe 1,000 Unit Tab) 1 Each Tablet, 1 EACH PO DAILY, (Reported) Entered as Reported by: JOSE CALDERA on 07/13/211914 Doxycycline Monohydrate (Doxycycline Monohydrate) 100 Mg Tablet, 100 MG PO BID Prescribed by: KAL SURESH on 02/06/23 1257 Furosemide (Lasix) 20 Mg Tablet, 20 MG PO, (Reported) Entered as Reported by: MATTIE OTERO on 07/22/19 05 Hydrocodone/Acetaminophen (Hydrocodone-Acetamin 7.5-325) 1 Each Tablet, 1 EACH PO Q4H Prescribed by: CAT LUKE on 07/15/21 1400 Levothyroxine Sodium (Levothyroxine Sodium) 50 Mcg Tablet, 50 MCG PO DAILY, (Reported) Entered as Reported by: JOSE CALDERA on 07/13/211914 Lisinopril (Lisinopril) 40 Mg Tablet, 40 MG PO DAILY, (Reported) Entered as Reported by: JOSE CALDERA on 07/13/211914 Loratadine (Loratadine) 10 Mg Tablet, 10 MG PO DAILY PRN for ALLERGY SYMPTOMS, (Reported) Entered as Reported by: JOSE CALDERA on 07/13/211914 Metoprolol Tartrate (Metoprolol Tartrate) 25 Mg Tablet, 25 MG PO BID, (Reported) Entered as Reported by: MATTIE OTERO on 07/22/19546 [place] 3 Polyunsat Fatty Acids (Fish Oil 1,000 mg Capsule) 1,000 Mg Cap, 1,000 MG PO BID, (Reported) Entered as Reported by: JOSE CALDERA on 07/13/211914 Pantoprazole Sodium (Pantoprazole Sodium) 40 Mg Tablet.dr, 40 MG PO DAILY Prescribed by: ABE VAUGHN on 07/01/21 05 Potassium Chloride (Potassium Chloride) 10 Meq Capsule.er, 10 MEQ PO DAILY, (Reported) Entered as Reported by: ELIUD PHELPS on 03/04/20 0729 Pravastatin Sodium (Pravastatin Sodium) 20 Mg Tablet, 20 MG PO, (Reported) Entered as Reported by: MATTIE OTERO on 07/22/19 0547 Review of Systems Review of Systems Constitutional: No chills, No diaphoresis, No dizziness, No malaise, No weakness EENTM: No Double Vision, No Eye Pain Respiratory: Denies Cough; Shortness of Air Cardiovascular: Denies Chest Pain, Denies Edema; Irregular Heart Rate Gastrointestinal: Abdominal Pain; Denies Diarrhea, Denies Vomiting Genitourinary: Denies Burning, Denies Discharge, Denies Drainage, Denies Frequency Musculoskeletal: No back pain, No joint pain Skin: No change in color, No change in hair/nails (SARAH CHAUDHARI) All Other Systems Reviewed Negative Unless Noted: Yes (SARAH CHAUDHARI) Past Kaknhwl-Puhitb-Vlravh Hx Patient Social History Tobacco Use?: No Use of E-Cig and/or Vaping dev: No Substance use?: No Alcohol Use?: No Pt feels they are or have been: No (SARAH CHAUDHARI) Immunizations Up To Date Tetanus Booster (TDap): Unknown First/Initial COVID19 Vaccinat: aug 2020 Second COVID19 Vaccination Kieran: september 2020 Third COVID19 Vaccination Date: MAY 2021 (SARAH CHAUDHARI) Seasonal Allergies Seasonal Allergies: No (SARAH CHAUDHARI) Past Medical History Surgery/Hospitalization HX: TRIPLE BIPASS, LT HIP, GALBLADDER, PACEMAKER Surgeries: Yes (LEFT HIP REPLACEMENT) CABG, Coronary Stent, Pacemaker Respiratory: Yes (CPAP IS NOT PORTABLE-UNABLE TO BRING IN) Sleep Apnea Currently Using CPAP: Yes Currently Using BIPAP: No Cardiac: Yes (PACEMAKER) Chronic Edema/Swelling, Coronary Artery Disease, High Cholesterol, Hypertension Neurological: No Genitourinary: No Gastrointestinal: Yes Gastroesophageal Reflux Musculoskeletal: Yes Arthritis Endocrine: Yes Hypothyroidsim HEENT: No Cancer: No Psychosocial: No Integumentary: No Blood Disorders: No (SARAH CHAUDHARI) Physical Exam Vital Signs Vital Signs - First Documented 02/06/23 02/06/23 10:48 13:08 Temp 37.0 Pulse 79 Resp 18 B/P (MAP) 184/93 (123) Pulse Ox 93 O2 Delivery Room Air (KENNEDY PATE MD) Vital Signs Capillary Refill : (SARAH CHAUDHARI) Height/Weight/BMI Height: 5'6.00" Weight: 210lbs. 0.0oz. 95.582102hd; 33.70 BMI Method:Stated General Appearance: WD/WN, no apparent distress HEENT: PERRL/EOMI, normal ENT inspection, TMs normal, pharynx normal Neck: non-tender, full range of motion, supple, normal inspection Respiratory: chest non-tender, lungs clear, normal breath sounds, no respiratory distress, no accessory muscle use Cardiovascular: regular rate, rhythm, no edema, no gallop, no JVD Gastrointestinal: normal bowel sounds, non tender, soft, no organomegaly Extremities: normal range of motion, non-tender, normal inspection, no pedal edema Back: normal inspection, no CVA tenderness Neurologic/Psychiatric: computer systems engineer II-XII nml as tested, no motor/sensory deficits, alert, normal mood/affect, oriented x 3 Skin: normal color, warm/dry (SARAH CHAUDHARI) Progress/Results/Core Measures Results/Orders Lab Results Laboratory Tests Test 02/06/23 10:58 Range/Units White Blood Count 5.8 4.3-11.0 10^3/uL Red Blood Count 5.18 4.30-5.52 10^6/uL Hemoglobin 15.8 13.3-17.7 g/dL Hematocrit 49 40-54 % Mean Corpuscular Volume 95 80-99 fL Mean Corpuscular Hemoglobin 31 25-34 pg Mean Corpuscular Hemoglobin Concent 32 32-36 g/dL Red Cell Distribution Width 14.8 H 10.0-14.5 % Platelet Count 97 L 130-400 10^3/uL Mean Platelet Volume 10.4 9.0-12.2 fL Immature Granulocyte % (Auto) 1 % Neutrophils (%) (Auto) 62 42-75 % Lymphocytes (%) (Auto) 27 12-44 % Monocytes (%) (Auto) 8 0-12 % Eosinophils (%) (Auto) 3 0-10 % Basophils (%) (Auto) 1 0-10 % Neutrophils # (Auto) 3.6 1.8-7.8 10^3/uL Lymphocytes # (Auto) 1.6 1.0-4.0 10^3/uL Monocytes # (Auto) 0.4 0.0-1.0 10^3/uL Eosinophils # (Auto) 0.2 0.0-0.3 10^3/uL Basophils # (Auto) 0.0 0.0-0.1 10^3/uL Immature Granulocyte # (Auto) 0.0 0.0-0.1 10^3/uL Percent Immature Platelet Fraction 3.5 0.0-7.6 % Sodium Level 141 135-145 MMOL/L Potassium Level 3.9 3.6-5.0 MMOL/L Chloride Level 108 H 98-107 MMOL/L Carbon Dioxide Level 25 21-32 MMOL/L Anion Gap 8 5-14 MMOL/L Blood Urea Nitrogen 18 7-18 MG/DL Creatinine 1.13 0.60-1.30 MG/DL Estimat Glomerular Filtration Rate 64 BUN/Creatinine Ratio 16 Glucose Level 151 H 70-105 MG/DL Calcium Level 9.1 8.5-10.1 MG/DL Corrected Calcium 9.3 8.5-10.1 MG/DL Magnesium Level 2.2 1.6-2.4 MG/DL Total Bilirubin 1.1 H 0.1-1.0 MG/DL Aspartate Amino Transf (AST/SGOT) 29 5-34 U/L Alanine Aminotransferase (ALT/SGPT) 24 0-55 U/L Alkaline Phosphatase 137 H 40-136 U/L Troponin I < 0.028 <0.028 NG/ML B-Type Natriuretic Peptide 539.2 H <100.0 PG/ML Total Protein 7.0 6.4-8.2 GM/DL Albumin 3.7 3.2-4.5 GM/DL (KENNEDY PATE MD) My Orders Orders - KENNEDY PATE MD Ekg Tracing (02/06/23 10:36) Monitor-Rhythm Ecg Trace Only (02/06/23 10:36) (KENNEDY PATE MD) Vital Signs/I&O 02/06/23 02/06/23 10:48 13:08 Temp 37.0 Pulse 79 74 Resp 18 18 B/P (MAP) 184/93 (123) 175/95 Pulse Ox 93 95 O2 Delivery Room Air Room Air (KENNEDY PATE MD) 2 Blood Pressure Mean: 123 Comment Ventricular paced, 60 bpm, QRS duration 176 MS, QTc 478 MS. (SARAH CHAUDHARI) Departure Communication (PCP) Reviewed previous ER visits, H&P, lab testing. Patient has no current chest pain or shortness of breath. Shortness of breath when he bends down to tie his shoe. Denies of increased leg swelling. Patient does have a pacemaker. Interrogation was performed. Episodes of high atrial rates. Reason why patient was started on Eliquis. No cardiac events. CBC, CMP, cardiac work-up was initiated with chest x-ray. Reports some abdominal pain since being on the Eliquis but started on Protonix has improved. He has no current abdominal tenderness vomiting, diarrhea or fever. CBC was grossly unremarkable. CMP grossly unremarkable. Normal troponin. BNP 539. Chest x-ray did note some cardiomegaly pulmonary congestion with bibasilar infiltrates greater on the right. Denies of any specific cough or wheezing. Lung sounds without wheezing or rhonchi. Discussed patient with resource specialist Dr. Johnson who recommend continue the Eliquis. No specific concerns at this time of the episodes of higher atrial rates. Patient does take 20 mg of Lasix. Does report leg swelling but states this appears to be improving after increasing his metoprolol and stopping his amlodipine. May increase his Lasix for the next 3 to 4 days 40 mg to help with pulmonary congestion and edema. Will discharge with doxycycline for potential pneumonia. Suggest follow-up your PCP in 2 to 3 days for reevaluation. If any worsening symptoms return back to ED. Follow-up with cardiology Dr. Jurado for further evaluation (SARAH CHAUDHARI) Impression Primary Impression: CHF (congestive heart failure) Additional Impression: Pneumonia Disposition: 01 HOME, SELF-CARE Condition: Stable Departure-Patient Inst. Decision time for Depature: 12:51 (SARAH CHAUDHARI) Referrals: BILLY BRENNER MD (PCP/Family) Primary Care Physician JEOVANY JURADO MD Patient Instructions: Heart Failure ED Add. Discharge Instructions: Recommend taking antibiotics as prescribed. Consider taking 40 mg of Lasix daily for the next 3 to 4 days. Follow-up your PCP in 2 to 3 days for reevaluation. Recommend follow-up with your resource specialist. Continue with your Eliquis and Protonix. If any worsening abdominal pain to return back to ED. All discharge instructions reviewed with patient and/or family. Voiced understanding. Scripts Doxycycline Monohydrate (Doxycycline Monohydrate) 100 Mg Tablet 100 MG PO BID for 7 Days, #14 TAB Prov: SARAH CHAUHDARI 02/06/23 ATTENDING PHYSICIAN NOTE: I was physically present as attending physician in the emergency department during the care of this patient, but I was not directly involved in the decision making or delivery of care for this patient. (KENNEDY PATE MD) SARAH CHAUDHARI Feb 06, 2023 11:24 KENNEDY PATE MD Feb 06, 2023 21:09
[2023-02-06 11:25] LABS: MEAN CORPUSCULAR HGB CONC 32 g/dL (32-36)
[2023-02-06 11:27] LABS: ALBUMIN 3.7 GM/DL (3.2-4.5); BASOPHILS % (AUTO) 1 % (0-10); EOSINOPHILS # (AUTO) 0.2 10^3/uL (0.0-0.3); EOSINOPHILS % (AUTO) 3 % (0-10); HEMATOCRIT 49 % (40-54); HEMOGLOBIN 15.8 g/dL (13.3-17.7); LYMPHOCYTES # (AUTO) 1.6 10^3/uL (1.0-4.0); LYMPHOCYTES % (AUTO) 27 % (12-44); MEAN CORPUSCULAR HEMOGLOBIN 31 pg (25-34); MEAN CORPUSCULAR VOLUME 95 fL (80-99); MEAN PLATELET VOLUME 10.4 fL (9.0-12.2); MONOCYTES # (AUTO) 0.4 10^3/uL (0.0-1.0); MONOCYTES % (AUTO) 8 % (0-12); NEUTROPHILS # (AUTO) 3.6 10^3/uL (1.8-7.8); NEUTROPHILS % (AUTO) 62 % (42-75); PLATELET COUNT 97 10^3/uL (130-400); WHITE BLOOD COUNT 5.8 10^3/uL (4.3-11.0)
[2023-02-06 11:28] LABS: CHLORIDE 108 MMOL/L (98-107); POTASSIUM 3.9 MMOL/L (3.6-5.0); SODIUM 141 MMOL/L (135-145)
[2023-02-06 11:29] LABS: CALCIUM 9.1 MG/DL (8.5-10.1)
[2023-02-06 11:30] LABS: GLUCOSE 151 MG/DL (70-105)
[2023-02-06 11:31] LABS: CARBON DIOXIDE 25 MMOL/L (21-32)
[2023-02-06 11:32] LABS: BILIRUBIN,TOTAL 1.1 MG/DL (0.1-1.0)
[2023-02-06 11:33] LABS: ALKALINE PHOSPHATASE 137 U/L (40-136)
[2023-02-06 11:34] LABS: CREATININE SERUM 1.13 MG/DL (0.60-1.30); GFR ESTIMATED 64
[2023-02-06 11:35] LABS: BUN/CREATININE RATIO 16
[2023-02-06 11:36] LABS: ALANINE AMINOTRANSFERASE 24 U/L (0-55); MAGNESIUM 2.2 MG/DL (1.6-2.4)
--- NOTE | 2023-02-06 12:01 | Diagnostic Imaging Report ---
INDICATION: Shortness of breath. FINDINGS: There is cardiomegaly and some moderate central pulmonary venous congestion. There are patchy bibasilar pulmonary infiltrates. There is no pleural effusion or pneumothorax. There is no pneumothorax. The mediastinum is unremarkable. Pacemaker overlies the left hemithorax. There has been a previous median sternotomy and coronary artery bypass graft. IMPRESSION: Cardiomegaly and some central pulmonary venous congestion. Patchy bibasilar infiltrates, right greater than left. Dictated by: Dictated on workstation # [id number]
[2023-02-06] MEDS ORDERED: DOXY100T31 PO (12:57)
[2023-02-06 13:08] VITALS: BP 175/95
== END 2023-02-06 13:10 | disposition home or self-care (01) ==
LOC: EDUNIT# 10:28 → ER 10:31
DX: I11.0 Hypertensive heart disease with heart failure (principal); I50.9 Heart failure, unspecified; J18.9 Pneumonia, unspecified organism; G47.30 Sleep apnea, unspecified; Z79.01 Long term (current) use of anticoagulants; Z79.899 Other long term (current) drug therapy; Z99.89 Dependence on other enabling machines and devices; Z88.2 Allergy status to sulfonamides; Z95.0 Presence of cardiac pacemaker
CPT/HCPCS: 36415; 71045; 80053; 83735; 83880; 84484; 85025; 93005; 93041

== ENCOUNTER 2023-03-01 08:20 | Day surgery (SDC) | payer MEDICARE ==
[2023-03-01] VITALS (9 sets, daily range): BP systolic 133–190; BP diastolic 71–97
[~2023-03-01] VITALS: Ht 164 cm; Wt 92.0 kg
[~2023-03-01 08:20] MED LIST changes: +DOXY100T31 PO; -POTA10CA44 PO; +POTA10CA84 PO
[2023-03-01] MEDS ORDERED: NS IV 1000 ML 1,000 ML ONE (08:43)
[2023-03-01] MEDS ORDERED: LIDOCAINE 2% VISCOUS 15 ML UDC ONE (08:43)
[2023-03-01] MEDS ORDERED: LIDOCAINE 2% VISCOUS 15 ML UDC PO ONE (08:45)
[2023-03-01] MEDS ORDERED: NS IV 1000 ML 1,000 ML IV SCH (08:45)
--- NOTE | 2023-03-01 09:14 | Diagnostic Imaging Report ---
INDICATION: Cardiac dysrhythmia/cardioversion. Single supine image of the chest is obtained with comparison made study of 02/06/2023. FINDINGS: There is cardiomegaly with increased pulmonary venous congestion. Central density likely represents pulmonary edema as well. There is no evidence of pneumothorax. No definite pleural fluid is seen. IMPRESSION: Findings indicate probable congestive heart failure with mild central pulmonary edema. Dictated by: Dictated on workstation # [id number]
[2023-03-01 09:34] LABS: BILIRUBIN,URINE NEGATIVE (NEGATIVE); CLARITY,URINE CLEAR; COLOR,URINE YELLOW; GLUCOSE, URINE (UA) NEGATIVE (NEGATIVE); KETONES,URINE NEGATIVE (NEGATIVE); LEUKOCYTE ESTERASE ,URINE NEGATIVE (NEGATIVE); NITRITE,URINE NEGATIVE (NEGATIVE); PH,URINE 6.5 (5-9); PROTEIN,URINE NEGATIVE (NEGATIVE)
[2023-03-01 09:42] LABS: BACTERIA,URINE NEGATIVE /HPF
[2023-03-01 09:44] LABS: BASOPHILS % (AUTO) 1 % (0-10); EOSINOPHILS # (AUTO) 0.2 10^3/uL (0.0-0.3); EOSINOPHILS % (AUTO) 2 % (0-10); HEMATOCRIT 45 % (40-54); HEMOGLOBIN 14.9 g/dL (13.3-17.7); LYMPHOCYTES % (AUTO) 30 % (12-44); MEAN CORPUSCULAR HEMOGLOBIN 31 pg (25-34); MEAN CORPUSCULAR HGB CONC 33 g/dL (32-36); MEAN CORPUSCULAR VOLUME 92 fL (80-99); MEAN PLATELET VOLUME 9.8 fL (9.0-12.2); MONOCYTES # (AUTO) 0.5 10^3/uL (0.0-1.0); MONOCYTES % (AUTO) 8 % (0-12); NEUTROPHILS # (AUTO) 3.9 10^3/uL (1.8-7.8); NEUTROPHILS % (AUTO) 59 % (42-75); PLATELET COUNT 89 10^3/uL (130-400); WHITE BLOOD COUNT 6.6 10^3/uL (4.3-11.0)
[2023-03-01] MEDS ORDERED: PANT40TA52 PO (09:51)
[2023-03-01] MEDS ORDERED: METO100T12 PO (09:51)
[2023-03-01] MEDS ORDERED: LEVO75TA6 PO (09:51)
[2023-03-01] MEDS ORDERED: ACET-2267 PO (09:51)
[2023-03-01] MEDS ORDERED: CHOL10004 PO (09:51)
[2023-03-01] MEDS ORDERED: APIX5TAB PO (09:51)
[2023-03-01 09:52] LABS: ALBUMIN 3.5 GM/DL (3.2-4.5)
[2023-03-01 09:53] LABS: CALCIUM 9.2 MG/DL (8.5-10.1)
[2023-03-01 09:55] LABS: TOTAL PROTEIN 6.5 GM/DL (6.4-8.2)
[2023-03-01 09:56] LABS: INR 1.3 (0.8-1.4); PROTHROMBIN TIME PATIENT 15.9 SEC (12.2-14.7)
[2023-03-01 09:57] LABS: BILIRUBIN,TOTAL 1.1 MG/DL (0.1-1.0)
[2023-03-01 09:58] LABS: CREATININE SERUM 0.98 MG/DL (0.60-1.30)
[2023-03-01] MEDS ORDERED: proPOfol 200 MG/20 ML (DIPRIVAN) VIAL IV ONE ×2 (10:03→10:12)
--- NOTE | 2023-03-01 10:35 | Cardiac Procedure Note-CS/ASA ---
Pre-Procedure Note Pre-Op Procedure Note Date of Available H&P: Feb 23, 2023 Date H&P Reviewed: Mar 01, 2023 Time H&P Reviewed: 10:00 History & Physical: H&P Reviewed, Patient Examed, No changes noted Pre-Operative Diagnosis: A fib Moderate Sedation PreProcedure Time 10:00 ASA Score 3 Airway Lungs Heart ASA score ASA 1: a normal healthy patient ASA 2: a patient with a mild systemic disease (mid diabetes, controlled hypertension, obesity ASA 3: a patient with a severe systemic disease that limits activity (angina, COPD, prior Myocardial infarction) ASA 4: a patient with an incapacitating disease that is a constant threat to life (CHF, renal failure) ASA 5: a moribund patient not expected to survive 24 hrs. (ruptured aneurysm) ASA 6: a declared brain- patient whose organs are being harvested. For emergent operations, add the letter E after the classification Mallampati Classification Grade 3 Sedation Plan Analgesia, Amnesia, Plan communicated to team members, Discussed options with patient/fam, Discussed risks with patient/fam The patient is an appropriate candidate to undergo the planned procedure, sedation, and anesthesia. The patient immediately re-assessed prior to indication. JEOVANY ROBLERO MD Mar 01, 2023 10:35
--- NOTE | 2023-03-01 10:36 | Cardioversion ---
Cardioversion PROCEDURE PHYSICIAN: Jeovany Jurado DATE OF PROCEDURE: 03/01/23 DIRECT EXTERNAL ELECTRICAL CARDIOVERSION: Indications: Atrial Fibrillation Preoperative diagnoses: Atrial Fibrillation Postoperative diagnosis: Sinus rhythm, Successful Electrical Cardioversion History: 82-year-old gentleman with diastolic dysfunction atrial fibrillation and pacemaker, has been more symptomatic with worsening peripheral edema. I decided to proceed with FREDDY and cardioversion. FREDDY done showing no clot or thrombus in the left atrium or left atrial appendage, cardioversion was advised. Anesthesia: By Anesthesia services Complications: None Specimen: None Contrast: 0 Flouroscopy: none Procedure Details: The patient was brought the bed laborer after informed consent was taken, all the risks and complications were explained including the risk of stroke. Electrical cardioversion was carried out with anesthesia support with propofol. 120 joules of synchronized shock was delivered through external patches which promptly restored sinus rhythm. The patient tolerated the procedure well. Conclusions: Successful electrical cardioversion and terminating atrial fibrillation Final Diagnosis: Atrial fibrillation Cardiac pacemaker Hypertension Congestive heart failure, acute on chronic left ventricular diastolic dysfunction JEOVANY JURADO MD Mar 01, 2023 10:36
[2023-03-01] MEDS ORDERED: DRON400T6 PO (10:38)
--- NOTE | 2023-03-01 10:38 | Discharge Inst-Post CATH ---
Discharge Inst-CATH/EP Problems Reviewed?: Yes Post Cardiac Cath/EP D/C Inst Follow Up/Plan Appointment with Dr. Jurado's office in 1 to 2 weeks <b>CARDIAC CATH/EP PROCEDURE DISCHARGE INSTRUCTIONS</b> ACTIVITY * Go Home directly and rest. * Limit activity of the leg (or wrist if it was used) for 7 days including aer obics, swimming, jogging, bicycling, etc. * Restrict stair-climbing for 7 days if possible, if not, climb up with your non-cath leg, then bring together on the same step. * Avoid lifting, pushing, pulling or excessive movement of the affected extremi ty for 7 days. * Customary sexual activity may be resumed after 2 days-use caution not to use a position that strains or causes pain to the affected extremity. * No driving for 24 hours. * NO SMOKING. * Avoid straining for bowel movements for 7 days. * Gentle walking on level ground is allowed. * Returning to work will depend on the type of procedure and the results. Your doctor will discuss this with you. CALL YOUR DOCTOR FOR ANY OF THE FOLLOWING: *If bleeding from the puncture site occurs- Apply gentle pressure to site with clean cloth and call your doctor or EMS. * If a knot or lump forms under the skin, increases in size, or causes pain. * If bruising appears to be worsening or moving further down your leg instead of disappearing. * Temperature above 101 F. CARE OF YOUR GROIN INCISION; * Bruising or purple discoloration of the skin near the puncture site is common. * You may shower only, no bathtub bathing for 5 days. Be careful to avoid slipping as your leg may feel stiff. * If a closure device was used on your femoral artery, please see the attached guide regarding care of the device and your leg. * Leave dressing on FOR 24 hours. CARE OF YOUR WRIST INCISION; * Bruising or purple discoloration of the skin near the puncture site is common. * You may shower. * DO NOT submerge wrist. * Leave dressing on FOR 24 hours. JEOVANY JURADO MD Mar 01, 2023 10:38
--- NOTE | 2023-03-01 12:18 | Anesthesia-General Post-Op ---
MAC Patient Condition Mental Status/LOC: Same as Preop Cardiovascular: Satisfactory Nausea/Vomiting: Absent Respiratory: Satisfactory Pain: Controlled Complications: Absent Post Op Complications Complications None Follow Up Care/Instructions Patient Instructions None needed. Anesthesiology Discharge Order Discharge Order Patient is doing well, no complaints, stable vital signs, no apparent adverse anesthesia problems. No complications reported per nursing. HORACE ROYAL CRNA Mar 01, 2023 12:18
== END 2023-03-01 12:00 | disposition home or self-care (01) ==
LOC: CATH 08:20 → SDC 11:05 → CATH 12:00
PROVIDERS: ATTEND Internal Medicine Cardiovascular Disease
DX: I48.91 Unspecified atrial fibrillation (principal); I11.0 Hypertensive heart disease with heart failure; I50.33 Acute on chronic diastolic (congestive) heart failure; E66.9 Obesity, unspecified; I25.10 Atherosclerotic heart disease of native coronary artery without angina pectoris; R60.0 Localized edema; E78.2 Mixed hyperlipidemia; I49.5 Sick sinus syndrome; I65.23 Occlusion and stenosis of bilateral carotid arteries; Z68.34 Body mass index [BMI] 34.0-34.9, adult; Z95.0 Presence of cardiac pacemaker; Z95.1 Presence of aortocoronary bypass graft; Z79.899 Other long term (current) drug therapy
CPT/HCPCS: 36415; 71045; 80053; 80061; 81000; 85025; 85610; 85730; 87081; 92960; 93005; 93312